=== PATIENT | female | born 1990 | race Caucasian/White ===

== ENCOUNTER 2019-07-26 12:26 | Observation (INO) | payer BC, OTHER, SELFPAY ==
[2019-07-26 13:09] VITALS: BP 117/64; PULSE 81
[2019-07-26 13:30] VITALS: BP 111/64; PULSE 73
[2019-07-26 14:14] LABS: Add Urine Microscopic? YES; Appearance Urine Cloudy (Clear); Bacteria Urine Trace /hpf; Bilirubin Urine Negative (Negative); Blood Urine Negative (Negative); Color Urine Straw (Yellow); Glucose Urine UA Negative (Negative); Ketones Urine Negative (Negative); Leukocyte Esterase Ur 1+ LEU/UL (NEGATIVE); Mucus Urine Rare /lpf; Nitrate Urine Negative (Negative); Protein Urine Negative (Negative); RBC Urine 0-2 /hpf (0-2); Specific Grav Ur 1.008 (1.001-1.035); Squamous Epithelial Cell Urine Many /hpf (Few); Urobilinogen Urine Negative mg/dL (<2.0)
[2019-07-26] MEDS: TERBUTALINE SULFATE 1 MG/ML VIAL 0.25 MG SUB-Q (14:42)
--- NOTE | 2019-07-30 14:21 | P.PNOB_ITS ---
OB - Triage/Final Diagnosis Evaluation Laboratory results: Laboratory Tests 07/26/19 13:16 Urine Color Straw Urine Appearance Cloudy H Urine pH 7.0 Ur Specific [place] 1.008 Urine Protein Negative Urine Glucose (UA) Negative Urine Ketones Negative Ur Blood (Man) Negative Urine Nitrate Negative Urine Bilirubin Negative Urine Urobilinogen Negative Ur Leukocyte Esterase 1+ H Urine RBC 0-2 Urine WBC 4-6 H Ur Squamous Epith Cells Many H Urine Bacteria Trace Urine Mucus Rare Final Diagnosis (1) False labor: Code(s): O47.9 - False labor, unspecified Status: Acute
== END 2019-07-26 16:10 | disposition home or self-care (01) ==
PROVIDERS: Admitting Provider Obstetrics & Gynecology; PCP Family Medicine; Visit Provider Obstetrics & Gynecology
DX: O47.03 False labor before 37 completed weeks of gestation, third trimester (principal); Z3A.33 33 weeks gestation of pregnancy
CPT/HCPCS: 81001; 84112; 87086; 87088; 96372; G0378; G0379; J3105

== ENCOUNTER 2019-08-08 11:22 | Observation (INO) | payer BC, OTHER, SELFPAY ==
--- NOTE | 2019-08-08 11:22 | OBADM ---
This patient, Mami Rodriguez, admitted to the OB room OB Post 116 for observation. Patient/family oriented to hospital policies and general routines including ID bracelet, bed and alarms, visiting hours, pain management, procedures, bathroom and other care routines, personal items, smoking policy, room service/diet, and visiting hours. Patient/Family are encouraged to report perceived risks to care and to ask questions if they do not understand what they are told or what they should do.
[2019-08-08 12:15] VITALS: BP 121/74; PULSE 91; BMI 41.6
[2019-08-08 12:24] LABS: Basophils Percent Auto 0.3 % (0.2-1.2); Eosinophils Percent Auto 0.3 % (0-4.4); Hematocrit 33.7 % (37.0-47.0); Hemoglobin 11.1 g/dL (12.0-15.0); Immature Granulocyte Absolute 0.04 K/mm3 (0.00-0.031); Immature Granulocyte Percent A 0.5 % (0-0.5); Lymphocytes Percent Auto 18.2 % (18.3-44.2); Mean Corpuscular HGB Conc 32.9 g/dl (32-36); Mean Corpuscular Hemoglobin 28.8 pg (26-34); Mean Corpuscular Volume 87.3 fl (80-100); Mean Platelet Volume 10.7 fl (7.4-10.4); Monocytes Absolute Auto 0.5 K/mm3 (0.1-0.6); Monocytes Percent Auto 5.9 % (2.6-8.5); Neutrophils Absolute Auto 5.8 K/mm3 (1.3-6.7); Neutrophils Percent Auto 74.8 % (45.5-73.1); Platelet Count Result 161 k/mm3 (150-375); Red Blood Count 3.86 M/mm3 (4.2-5.4); Red Cell Distribution Width 14.4 % (11.5-14.5); White Blood Count 7.7 K/mm3 (4.5-10.0)
[2019-08-08 12:30] VITALS: BP 103/67; PULSE 80
[2019-08-08 12:30] LABS: Add Urine Microscopic? YES; Appearance Urine Clear (Clear); Bacteria Urine Trace /hpf; Bilirubin Urine Negative (Negative); Blood Urine Negative (Negative); Color Urine Straw (Yellow); Glucose Urine UA Negative (Negative); Ketones Urine Negative (Negative); Leukocyte Esterase Ur 1+ LEU/UL (NEGATIVE); Mucus Urine Rare /lpf; Nitrate Urine Negative (Negative); Protein Urine Negative (Negative); RBC Urine 0-2 /hpf (0-2); Specific Grav Ur 1.009 (1.001-1.035); Squamous Epithelial Cell Urine Many /hpf (Few); Urobilinogen Urine Negative mg/dL (<2.0); WBC Urine 0-3 /hpf (0-3)
[2019-08-08 12:38] LABS: Alanine Aminotransferase 9 U/L (4-35); Albumin Level 3.4 g/dL (3.5-5.1); Alkaline Phosphatase 107 U/L (38-126); Aspartate Amino Transferase 18 U/L (14-36); Bilirubin,Total 0.2 mg/dL (0.2-1.3); Blood Urea Nitrogen 5 mg/dL (7-17); Calcium 8.9 mg/dL (8.4-10.2); Carbon Dioxide 21 mmol/L (22-30); Chloride 108 mmol/L (98-107); Estimated Glomerular Filt Rate > 60; Glucose 71 mg/dL (65-105); Sodium 134 mmol/L (137-145)
[2019-08-08] MEDS: DEXTROSE 5%/LACTATED RINGERS 1,000 ML 999 ML IV CONT (12:42)
[2019-08-08 12:45] VITALS: BP 120/71; PULSE 87
[2019-08-08 12:53] LABS: Uric Acid 3.5 mg/dL (2.5-7.5)
[2019-08-08 13:00] VITALS: BP 117/72; PULSE 87
[2019-08-08 13:15] VITALS: BP 115/69; PULSE 88
[2019-08-08 13:30] VITALS: BP 121/74; PULSE 93
--- NOTE | 2019-08-12 20:51 | P.PNOB_ITS ---
OB - Triage/Final Diagnosis Visit Information Date of evaluation: 08/08/19 Comments/Additional reasons for admission: nausea, dizziness Evaluation Laboratory results: Laboratory Tests 08/08/19 08/08/19 08/08/19 12:17 12:17 12:18 WBC RBC Hgb Hct MCV MCH MCHC RDW Plt Count MPV Immature Gran % (Auto) Neut % (Auto) Lymph % (Auto) [place] % (Auto) Eos % (Auto) Baso % (Auto) Lymph # (Auto) [place] # (Auto) Eos # (Auto) Baso # (Auto) Abs Immat Gran (auto) Absolute Neuts (auto) Absolute Nucleated RBC Nucleated RBC % Sodium 134 L Potassium 4.0 Chloride 108 H Carbon Dioxide 21 L BUN 5 L Creatinine 0.40 L Estim Creat Clear Calc Not Reportable Estimated GFR > 60 Glucose 71 Uric Acid 3.5 Calcium 8.9 Total Bilirubin 0.2 AST 18 ALT 9 Alkaline Phosphatase 107 Total Protein 7.0 Albumin 3.4 L Urine Color Straw Urine Appearance Clear Urine pH 7.0 Ur Specific [employer] [place] 1.009 Urine Protein Negative Urine Glucose (UA) Negative Urine Ketones Negative Ur Blood (Man) Negative Urine Nitrate Negative Urine Bilirubin Negative Urine Urobilinogen Negative Ur Leukocyte Esterase 1+ H Urine RBC 0-2 Urine WBC 0-3 Ur Squamous Epith Cells Many H Urine Bacteria Trace Urine Mucus Rare 08/08/19 12:18 WBC 7.7 RBC 3.86 L Hgb 11.1 L Hct 33.7 L MCV 87.3 MCH 28.8 MCHC 32.9 RDW 14.4 Plt Count 161 MPV 10.7 H Immature Gran % (Auto) 0.5 Neut % (Auto) 74.8 H Lymph % (Auto) 18.2 L [place] % (Auto) 5.9 Eos % (Auto) 0.3 Baso % (Auto) 0.3 Lymph # (Auto) 1.40 [place] # (Auto) 0.5 Eos # (Auto) 0.0 Baso # (Auto) 0.0 Abs Immat Gran (auto) 0.04 H Absolute Neuts (auto) 5.8 Absolute Nucleated RBC 0.0 Nucleated RBC % 0.0 Sodium Potassium Chloride Carbon Dioxide BUN Creatinine Estim Creat Clear Calc Estimated GFR Glucose Uric Acid Calcium Total Bilirubin AST ALT Alkaline Phosphatase Total Protein Albumin Urine Color Urine Appearance Urine pH Ur Specific [employer] Urine Protein Urine Glucose (UA) Urine Ketones Ur Blood (Man) Urine Nitrate Urine Bilirubin Urine Urobilinogen Ur Leukocyte Esterase Urine RBC Urine WBC Ur Squamous Epith Cells Urine Bacteria Urine Mucus
== END 2019-08-08 14:45 | disposition home or self-care (01) ==
PROVIDERS: Advanced Practice Midwife; Admitting Provider Obstetrics & Gynecology; PCP Family Medicine; Visit Provider Obstetrics & Gynecology
DX: O26.893 Other specified pregnancy related conditions, third trimester (principal); R42 Dizziness and giddiness; R11.0 Nausea; Z3A.35 35 weeks gestation of pregnancy
CPT/HCPCS: 36415; 80053; 81001; 84550; 85025; 87086; 87088; G0378; G0379; J7121

== ENCOUNTER 2019-08-17 19:44 | Observation (INO) | payer BC, OTHER, SELFPAY ==
[2019-08-17 23:15] VITALS: BMI 42.3
[2019-08-17] MEDS: LACTATED RINGERS 1,000 ML 125 ML IV CONT (23:19)
[2019-08-17 23:26] LABS: Basophils Percent Auto 0.2 % (0.2-1.2); Eosinophils Percent Auto 0.4 % (0-4.4); Hematocrit 34.6 % (37.0-47.0); Hemoglobin 11.5 g/dL (12.0-15.0); Immature Granulocyte Absolute 0.05 K/mm3 (0.00-0.031); Immature Granulocyte Percent A 0.5 % (0-0.5); Lymphocytes Absolute Auto 2.02 K/mm3 (0.9-3.2); Lymphocytes Percent Auto 19.9 % (18.3-44.2); Mean Corpuscular HGB Conc 33.2 g/dl (32-36); Mean Corpuscular Hemoglobin 28.7 pg (26-34); Mean Corpuscular Volume 86.3 fl (80-100); Mean Platelet Volume 10.7 fl (7.4-10.4); Monocytes Absolute Auto 0.5 K/mm3 (0.1-0.6); Monocytes Percent Auto 4.9 % (2.6-8.5); Neutrophils Absolute Auto 7.5 K/mm3 (1.3-6.7); Neutrophils Percent Auto 74.1 % (45.5-73.1); Platelet Count Result 149 k/mm3 (150-375); Red Blood Count 4.01 M/mm3 (4.2-5.4); White Blood Count 10.1 K/mm3 (4.5-10.0)
--- NOTE | 2019-08-17 23:28 | LDADM ---
This patient, Mami Rodriguez, was admitted to Labor/Delivery/Recovery 106 on 08/17/19 at 19:44. Plans for labor, pain management and were discussed with patient. Patient/family oriented to hospital policies and general routines including ID bracelet, bed and alarms, visiting hours, pain management, procedures, bathroom and other care routines, personal items, smoking policy, room service/diet and guest tray routines, infant security routines, and visiting hours. Patient/Family are encouraged to report perceived risks to care and to ask questions if they do not understand what they are told or what they should do. See OBIX for further documentation.
[2019-08-17 23:39] VITALS: BP 123/74; PULSE 81; TEMP 36.6
[2019-08-18] VITALS (10 sets, daily range): BP systolic 102–122; BP diastolic 62–73; PULSE 89–114; TEMP 36.3–37.1
[2019-08-20 13:33] LABS: Rapid Plasma Reagin Non-Reactive (NonReactive)
--- NOTE | 2019-08-31 12:12 | PM.OBTRLD ---
OB - Triage/Final Diagnosis Evaluation Laboratory results: Laboratory Tests 08/17/19 08/17/19 08/17/19 23:16 23:16 23:16 WBC 10.1 H RBC 4.01 L Hgb 11.5 L Hct 34.6 L MCV 86.3 MCH 28.7 MCHC 33.2 RDW 15.0 H Plt Count 149 L MPV 10.7 H Immature Gran % (Auto) 0.5 Neut % (Auto) 74.1 H Lymph % (Auto) 19.9 [place] % (Auto) 4.9 Eos % (Auto) 0.4 Baso % (Auto) 0.2 Lymph # (Auto) 2.02 [place] # (Auto) 0.5 Eos # (Auto) 0.0 Baso # (Auto) 0.0 Abs Immat Gran (auto) 0.05 H Absolute Neuts (auto) 7.5 H Absolute Nucleated RBC 0.0 Nucleated RBC % 0.0 RPR Non-reactive Blood Type AB Positive Antibody Screen Negative Final Diagnosis (1) False labor: Code(s): O47.9 - False labor, unspecified Status: Acute
== END 2019-08-18 09:35 | disposition home or self-care (01) ==
PROVIDERS: Advanced Practice Midwife; Admitting Provider Obstetrics & Gynecology; PCP Family Medicine; Visit Provider Obstetrics & Gynecology
DX: O47.9 False labor, unspecified (principal); Z3A.00 Weeks of gestation of pregnancy not specified
CPT/HCPCS: 36415; 85025; 86592; 86850; 86900; 86901; 96374; 96375; G0378; G0379; J3010; J3370; J7120

== ENCOUNTER 2019-08-19 19:00 | Observation (INO) | payer BC, OTHER, SELFPAY ==
--- NOTE | 2019-08-19 19:00 | OBADM ---
This patient, Mami Rodriguez, admitted to the OB room Labor/Delivery/Recovery 106 for observation. Patient/family oriented to hospital policies and general routines including ID bracelet, bed and alarms, visiting hours, pain management, procedures, bathroom and other care routines, personal items, smoking policy, room service/diet, and visiting hours. Patient/Family are encouraged to report perceived risks to care and to ask questions if they do not understand what they are told or what they should do.
[2019-08-19 19:15] VITALS: TEMP 37.3
[2019-08-19 19:17] VITALS: BP 131/79; PULSE 96
[2019-08-19 19:30] VITALS: BP 128/74; PULSE 94
[2019-08-19 19:45] VITALS: BP 121/78; PULSE 77
[2019-08-19 20:00] VITALS: BP 116/81; PULSE 90; BMI 42.3
[2019-08-19 20:15] VITALS: BP 120/66; PULSE 76
--- NOTE | 2019-08-28 07:27 | PM.OBTRLD ---
OB - Triage/Final Diagnosis Visit Information Date of evaluation: 08/22/19 Reason for evaluation: threatened labor
== END 2019-08-19 21:45 | disposition home or self-care (01) ==
PROVIDERS: Admitting Provider Obstetrics & Gynecology; PCP Family Medicine; Visit Provider Obstetrics & Gynecology
DX: O47.1 False labor at or after 37 completed weeks of gestation (principal); Z3A.37 37 weeks gestation of pregnancy
CPT/HCPCS: G0378; G0379

== ENCOUNTER 2019-08-27 13:07 | Outpatient (CLI) | payer BC, OTHER, SELFPAY ==
[2019-08-27 13:07] VITALS: BMI 42.5
--- NOTE | 2019-08-27 17:23 | OBADM ---
This patient, Mami Rodriguez, admitted to the OB room Labor/Delivery/Recovery 106 for observation. Patient/family oriented to hospital policies and general routines including ID bracelet, bed and alarms, visiting hours, pain management, procedures, bathroom and other care routines, smoking policy,call light. Patient/Family are encouraged to report perceived risks to care and to ask questions if they do not understand what they are told or what they should do.
== END 2019-08-27 17:22 | disposition home or self-care (01) ==
LOC: ANHOBOP 16:50 → ANHLDR 16:52
PROVIDERS: PCP Family Medicine; Visit Provider Obstetrics & Gynecology
DX: Z34.90 Encounter for supervision of normal pregnancy, unspecified, unspecified trimester (principal); Z3A.00 Weeks of gestation of pregnancy not specified
CPT/HCPCS: 59025; 99199

== ENCOUNTER 2019-08-28 21:55 | Inpatient (IN) | payer BC, OTHER, SELFPAY ==
[2019-08-28] VITALS (16 sets, daily range): BP systolic 105–125; BP diastolic 55–80; PULSE 78–103; TEMP 36.7; O2SAT 97–99; BMI 42.6
--- NOTE | 2019-08-28 22:30 | P.HP_ITS ---
Obstetrics - Admit Note Admission Note: record reviewed. No pertinent additions to the history and/or any subsequent changes in the physical findings that are not consistent with the expected course of the were found.Pt arrived to in active labor with complaints of contractions and leaking fluid, GBS +. Rupture not co nfirmed cervix 6-7 cm. Pt rating pain at a 9 , plan epidural, antibiotics, anticipate vaginal delivery Additions to the history and/or subsequent changes in the physical findings follow. None.
[2019-08-28 22:54] LABS: Basophils Percent Auto 0.3 % (0.2-1.2); Eosinophils Percent Auto 0.2 % (0-4.4); Hemoglobin 11.4 g/dL (12.0-15.0); Immature Granulocyte Absolute 0.04 K/mm3 (0.00-0.031); Immature Granulocyte Percent A 0.4 % (0-0.5); Lymphocytes Percent Auto 17.2 % (18.3-44.2); Mean Corpuscular HGB Conc 33.5 g/dl (32-36); Mean Corpuscular Hemoglobin 28.9 pg (26-34); Mean Corpuscular Volume 86.1 fl (80-100); Monocytes Absolute Auto 0.6 K/mm3 (0.1-0.6); Monocytes Percent Auto 5.6 % (2.6-8.5); Neutrophils Absolute Auto 7.5 K/mm3 (1.3-6.7); Neutrophils Percent Auto 76.3 % (45.5-73.1); Platelet Count Result 153 k/mm3 (150-375); Red Blood Count 3.95 M/mm3 (4.2-5.4); Red Cell Distribution Width 15.5 % (11.5-14.5); White Blood Count 9.9 K/mm3 (4.5-10.0)
[2019-08-28] MEDS: LACTATED RINGERS 1,000 ML 125 ML IV CONT (22:58)
--- NOTE | 2019-08-28 23:06 | LDADM ---
This patient, Mami Rodriguez, was admitted to Labor/Delivery/Recovery 103 on 08/28/19 at 21:55. Plans for labor, pain management and were discussed with patient. Patient/family oriented to hospital policies and general routines including ID bracelet, bed and alarms, visiting hours, pain management, procedures, bathroom and other care routines, personal items, smoking policy, room service/diet and guest tray routines, infant security routines, and visiting hours. Patient/Family are encouraged to report perceived risks to care and to ask questions if they do not understand what they are told or what they should do. See OBIX for further documentation.
--- NOTE | 2019-08-28 23:18 | P.PNAN_ITS ---
Anes - Eval Pre Procedure Procedure: labor epidural Date/Time: 08/28/19 23:18 Surgeon: jourdan Pre Op Diagnosis: Contraction Patient Data Age: 29 Gender: F Height: Weight: Last Vital Signs Pulse 78 08/28/19 23:16 BP 125/80 08/28/19 23:16 Allergies Allergy/AdvReac Type Severity Reaction Status Date / Time amoxicillin Allergy Unknown Rash Verified 08/21/19 09:11 Home Medications Medication Instructions Recorded Confirmed Type PNV cmb#95-ferrous fumarate-FA 1 tablet PO DAILY 08/10/19 08/17/19 History [] ferrous sulfate [Iron (ferrous 325 mg PO DAILY 08/10/19 08/17/19 History sulfate)] sertraline [Zoloft] 50 mg PO DAILY 08/10/19 08/17/19 History Laboratory Tests 08/28/19 08/28/19 22:48 22:48 WBC 9.9 K/mm3 K/mm3 (4.5-10.0) RBC 3.95 M/mm3 L M/mm3 (4.2-5.4) Hgb 11.4 g/dL L g/dL (12.0-15.0) Hct 34.0 % L % (37.0-47.0) MCV 86.1 fl fl (80-100) MCH 28.9 pg pg (26-34) MCHC 33.5 g/dl g/dl (32-36) RDW 15.5 % H % (11.5-14.5) Plt Count 153 k/mm3 k/mm3 (150-375) MPV 11.0 fl H fl (7.4-10.4) Immature Gran % (Auto) 0.4 % % (0-0.5) Neut % (Auto) 76.3 % H % (45.5-73.1) Lymph % (Auto) 17.2 % L % (18.3-44.2) [place] % (Auto) 5.6 % % (2.6-8.5) Eos % (Auto) 0.2 % % (0-4.4) Baso % (Auto) 0.3 % % (0.2-1.2) Lymph # (Auto) 1.70 K/mm3 K/mm3 (0.9-3.2) [place] # (Auto) 0.6 K/mm3 K/mm3 (0.1-0.6) Eos # (Auto) 0.0 K/mm3 K/mm3 (0-0.3) Baso # (Auto) 0.0 K/mm3 K/mm3 (0.0-0.1) Abs Immat Gran (auto) 0.04 K/mm3 H K/mm3 (0.00-0.031) Absolute Neuts (auto) 7.5 K/mm3 H K/mm3 (1.3-6.7) Absolute Nucleated RBC 0.0 K/mm3 K/mm3 (0.0-0.012) Nucleated RBC % 0.0 % % (0.0-0.2) RPR Pending Patient hx anesthesia problems: none Family hx anesthesia problems: none PMFSH Family History Family History (System 08/21/19 @ 09:11 by Natalia Jones) Grandparent Diabetes mellitus Mother Gestational diabetes Sibling Asthma Sibling Asthma Grandparent Hypertension Grandparent Diabetes mellitus Other Cerebrovascular accident Social History Social History (System 08/21/19 @ 09:11 by Natalia Jones) Smoking status: Never smoker Second hand tobacco smoke exposure: No Alcohol intake: never Substance use: never Gender identity (if verbalized by the patient): Female Spiritual care concerns: No Exam Day of Procedure 08/28/19 23:18
[2019-08-29] VITALS (66 sets, daily range): BP systolic 91–131; BP diastolic 36–118; PULSE 78–159; RESP 18; TEMP 36.4–37.7; O2SAT 96–100
[2019-08-29] MEDS: LACTATED RINGERS 1,000 ML 125 ML IV CONT (00:33)
[2019-08-29] MEDS: OXYTOCIN 30 UNITS/NS 500 ML 30 UNITS/500 ML BAG 999 UNITS IV CONT (02:53)
--- NOTE | 2019-08-29 03:29 | PM.OBPRVD ---
OB - Delivery Note Procedure Delivery date: 08/29/19 Delivery monitor: external FHT and external uterine Route of delivery: Laceration description: Perineal - 2nd Degree Estimated blood loss (mL): 306 Anesthesia type: Epidural Baby Date of : 08/29/19 Weeks of gestation at delivery: 38 gender: Female presentation: vertex position: Right Occiput Anterior Placenta delivery description: Spontaneous score one minute: 8 score five minutes: 9
[2019-08-29] MEDS: OXYTOCIN 30 UNITS/NS 500 ML 30 UNITS/500 ML BAG 125 UNITS IV CONT (04:06)
[2019-08-29] MEDS: IBUPROFEN 600 MG TABLET PO ×3 (05:28→17:46)
[2019-08-29] MEDS: WITCH HAZEL 40 PADS 1 PAD TOPICAL (05:28)
[2019-08-29] MEDS: BENZOCAINE 20% AER SPR (*SP) 56 GM CAN 1 SPRAY TOPICAL (05:28)
--- NOTE | 2019-08-29 05:45 | OBPPTRN ---
Patient transferred to post room #278 via wheelchair with baby in bassinet. Support person present. Oriented to unit, room, information board, rooming in, admission packet and security measures. Patient verbalizes understanding.
[2019-08-29 07:12] LABS: Rapid Plasma Reagin Non-Reactive (NonReactive)
[2019-08-29] MEDS: DOCUSATE SODIUM 100 MG CAPSULE PO (07:26)
[2019-08-29] MEDS: MULTIVIT/MIN/PREN/FOL AC/IRON TABLET 1 TAB PO (07:26)
[2019-08-29] MEDS: LANOLIN (LANSINOH) 7.5 GM CREAM 1 APPLIC TOPICAL (07:27)
--- NOTE | 2019-08-29 12:10 | PC.NURSE ---
Mother called out for assist with feeding. Mother reports infant has been sleepy for feedings. Reviewed feeding cues, frequencies, duration of feedings, feeding elimination flow sheet, and signs of adequate intake. Demonstrated stimulation techniques to wake infant for feeding. Assisted with infant to breast. Reviewed positioning/alignment in cross cradle, holding breast in U hold and guided asymmetrical latch on. Discussed rational for each. Several attempts before was able to latch correctly. Infant nursed eagerly, with steady draws and occasional swallowing noted. Reviewed signs of a correct latch, effective nursing and suck swallow ratio. Mother continued to have slight tenderness. Demonstrated how to adjust latch more deeply while feeding. was able to maintain latch without discomfort to mother. Nipple care reviewed. Suggested to continue to stimulate during feeding to keep infant awake and nursing effectively for increased intake and assist in maintaining deep latch. Instructed mother to call out for RN assistance if she is unable to latch infant for feeding or she has discomfort with nursing. Instructed feeding should be initiated three hours from start of last feeding or if feeding cues are noted before. Mother voiced understanding of information shared.
[2019-08-29] MEDS: ACETAMINOPHEN 325 MG TABLET 650 MG PO (20:02)
[2019-08-30] MEDS: IBUPROFEN 600 MG TABLET PO ×3 (00:33→13:36)
[2019-08-30 05:44] LABS: Hematocrit 26.6 % (37.0-47.0); Hemoglobin 8.6 g/dL (12.0-15.0)
--- NOTE | 2019-08-30 07:19 | WPDANLDPN2 ---
Anes-Prog Note L&D Date/Time: 08/30/19 07:19 Comfortable throughout: labor and delivery Neuraxial method: epidural Epidural/Spinal procedure site: clean & non-tender Neuro status: Neuro function grossly intact. Cardiovascular status: normal Respiratory status: normal Airway patency: baseline Mental status: baseline Post-Op hydration status: normal Vital Signs: Last Vital Signs Temp 36.4 C 08/29/19 20:00 Pulse 93 08/29/19 20:00 Resp 18 08/29/19 20:00 BP 98/58 L 08/29/19 20:00 Pulse Ox 97 08/29/19 20:00 I/O: Intake & Output 08/29/19 08/29/19 08/30/19 15:59 23:59 07:59 Intake Total 500 Balance 500 Post-procedural complaints: none Patient feedback: Patient satisfied with anesthetic care.
[2019-08-30 07:20] VITALS: BP 104/59; PULSE 79; RESP 18; TEMP 36.4; O2SAT 96
[2019-08-30] MEDS: DOCUSATE SODIUM 100 MG CAPSULE PO (07:23)
[2019-08-30] MEDS: POLYSACCHARIDE IRON COMPLEX 150 MG CAPSULE PO (07:23)
[2019-08-30] MEDS: MULTIVIT/MIN/PREN/FOL AC/IRON TABLET 1 TAB PO (07:23)
--- NOTE | 2019-08-30 07:57 | P.PNOB_ITS ---
OB - PN: Subj Subjective Date/time seen: 08/30/19 07:57 OB - PN: Obj Data Labs CBC & Chem 7: 08/30/19 04:16 Labs: Laboratory Results - last 24 hr 08/30/19 04:16 Hgb 8.6 L Hct 26.6 L OB - PN A/P Plan day: 1 Plan: routine care Comments: Considering discharge to home. Awaiting garden equipment mechanic recommendation. Time Spent With Patient Time: Total time spent is greater than 50% in coordination of care (as documented) at patient's floor/unit and/or counseling patient: Review of Systems Review of Systems: All systems reviewed & are unremarkable except as noted in HPI and below Exam Narrative: Exam Narrative: Fundus firm and vaginal flow controlled. Const: General: comfortable Chest: Breast/axilla inspection: normal inspection of the breasts Resp: Effort & Inspection: normal respiratory effort Cardio: Rate: regular rate Psych: Appearance: grossly normal Affect: normal affect Attitude: cooperative Judgement: Good judgement present (Psych)
--- NOTE | 2019-08-30 09:00 | PC.NURSE ---
Patient viewed the discharge video Mother & Baby Care, The First Two Weeks . Patient was given the opportunity and encouraged to ask questions. Patient verbalized understanding of information shared and has been given the mother/baby guide for home reference.
[2019-08-31 10:24] VITALS: BP 110/65; PULSE 81; RESP 18; TEMP 36.9
--- NOTE | 2019-09-15 21:37 | PM.OBDSVD ---
DS: Admitting Diagnosis Admitting Diagnosis Admitting Diagnosis: Encounter for supervision of normal , unspecified, third trimester OB - DS: Summary OB Procedures : None OB Procedures Intrapartum: Spontaneous Vag Delivery OB Procedures: : None Time Spent with Patient Time attestation: Total time spent providing and/or coordinating discharge services: Discharge Plan Discharge Attending physician on discharge: Teresa Smalls Consulting providers: Niyah Smith ; Lorena Larson Discharging Clinician: Lorena Larson Patient Disposition: Home, Self-Care Activity: pelvic rest Diet: regular Discharge Instructions: Education: Mom and Baby Guide and Preeclampsia Handout Given to: Mother Follow-Up: Call your delivering provider's office for an appointment to be seen in: 6 Weeks Mom and baby should come to the [facility] for the follow-up appointment. Appointment Date/Time: August 31, 2019 at 10:00 am What to expect at your follow-up visit: Physical Assessment Call [phone] if you are unable to keep your appointment time. BREAST CARE: 1. Wear a snug supportive bra. 2. For engorgement discomfort: Breast Feeding: A. Apply warm moist washcloths B. Express milk as needed to relieve engorgement C. Wear loose clothing 3. For sore nipples: A. Identify correct latch-on B. Apply warm moist washcloths before and after nursing C. Air dry nipples after nursing D. May apply Lansinoh cream to nipples EPISIOTOMY/PERINEAL CARE: 1. Until bleeding stops, use your shaila bottle after urinating 2. Change your pad frequently throughout the day 3. You may take sitz baths several times a day (fill your bathtub with warm water and soak for 20 minutes.) Do NOT bathe in the water 4. No tub baths until seen by your physician - You may shower ACTIVITY: 1. Rest as much as possible. 2. Do not exercise or lift anything heavier than your baby (such as laundry or other children.) 3. Avoid stairs or driving as much as possible. 4. Do not put anything into the vagina. No douching, tampons, or sexual activity until seen by physician. NOTIFY PHYSICIAN IF YOU HAVE ANY QUESTIONS OR IF ANY OF THE FOLLOWING SYMPTOMS OCCUR: 1. If your episiotomy becomes red, swollen, or more painful than what you have experienced in the hospital. 2. If your vaginal bleeding becomes foul smelling. 3. If your vaginal bleeding becomes more heavy than a period or if your bleeding changes from pink to bright red. However, you may pass an occasional walnut-sized clot once or twice for the first week . 4. If you experience a sharp, shooting pain in you calves. 5. If you discover a hard, reddened area on your breast or if you experience flu-like symptoms. DIET: 1. Eat regular, well-balanced meals. 2. Drink plenty of fluids daily. If , drink to thirst. Stand Alone Forms: General Discharge Information Follow-up/Referrals: Teresa Smalls MD [Physician] - 4 Weeks Discharge Medications: Continued ferrous sulfate [Iron (ferrous sulfate)] 325 mg (65 mg iron) Tablet 325 mg PO DAILY RF: 0 sertraline [Zoloft] 50 mg Tablet 50 mg PO DAILY RF: 0 PNV cmb#95-ferrous fumarate-FA [] 28 mg iron- 800 mcg Tablet 1 tablet PO DAILY RF: 0 Date of admission: 08/28/19 21:55 Primary Care Provider: Brittany Contreras Admitting Provider: Teresa Smalls Discharge Date/Time: 08/30/19 16:47 Attending physician on admission: Teresa Smalls
== END 2019-08-30 16:47 | disposition home or self-care (01) | DRG 807 ==
LOC: ANHLDR 22:45 → ANHOB2 08-29 06:15
PROVIDERS: Advanced Practice Midwife; Admitting Provider Obstetrics & Gynecology; PCP Family Medicine; Visit Provider Obstetrics & Gynecology
DX: O99.824 Streptococcus B carrier state complicating childbirth (principal); Z37.0 Single live birth; O70.1 Second degree perineal laceration during delivery; O76 Abnormality in fetal heart rate and rhythm complicating labor and delivery; Z3A.38 38 weeks gestation of pregnancy
CPT/HCPCS: 36415; 85014; 85018; 85025; 86592; 86850; 86900; 86901; A9270; J1200; J2590; J2795; J3370; J7120

== ENCOUNTER 2021-11-17 17:07 | Observation (INO) | payer OTHER, SELFPAY ==
[2021-11-17 17:32] VITALS: TEMP 36.4
[2021-11-17 17:33] VITALS: BP 115/65; PULSE 68
[2021-11-17 17:43] VITALS: BMI 39.5
[2021-11-17 17:45] VITALS: BP 108/62; PULSE 61
[2021-11-17 18:00] VITALS: BP 104/63; PULSE 65
[2021-11-17 18:15] VITALS: BP 101/65; PULSE 70
[2021-11-17 19:15] LABS: Appearance Urine Clear (Clear); Bilirubin Urine Negative (Negative); Blood Urine Negative (Negative); Color Urine Light Yellow (Yellow); Glucose Urine UA Negative (Negative); Ketones Urine Negative (Negative); Leukocyte Esterase Ur Trace LEU/UL (NEGATIVE); Nitrate Urine Negative (Negative); Protein Urine Negative (Negative); Urobilinogen Urine 0.2 mg/dL (<2.0); pH Urine 6.5 (5.0-9.0)
[2021-11-17 19:26] LABS: Bacteria Urine Trace /hpf; RBC Urine 0-2 /hpf (0-2); Squamous Epithelial Cell Urine Rare /hpf (Few); WBC Urine 0-3 /hpf (0-3)
[2021-11-17 19:30] LABS: Add Urine Microscopic? YES
--- NOTE | 2021-12-06 20:05 | P.PNOB_ITS ---
OB - Triage/Final Diagnosis Visit Information Comments/Additional reasons for admission: I have assessed the risk for this patient, Mami Rordiguez, and determined that she would benefit from observation care. Evaluation Laboratory results: Laboratory Tests 11/17/21 18:31 Urine Color Light yellow Urine Appearance Clear Urine pH 6.5 Ur Specific [place] 1.010 Urine Protein Negative Urine Glucose (UA) Negative Urine Ketones Negative Ur Blood (Man) Negative Urine Nitrate Negative Urine Bilirubin Negative Urine Urobilinogen 0.2 Ur Leukocyte Esterase Trace H Urine RBC 0-2 Urine WBC 0-3 Ur Squamous Epith Cells Rare Urine Bacteria Trace Final Diagnosis (1) Back pain affecting : Code(s): O99.891 - Other specified diseases and conditions complicating ; M54.9 - Dorsalgia, unspecified Status: Acute
== END 2021-11-17 20:20 | disposition home or self-care (01) ==
PROVIDERS: Admitting Provider Obstetrics & Gynecology; PCP Family Medicine; Visit Provider Obstetrics & Gynecology
DX: O26.893 Other specified pregnancy related conditions, third trimester (principal); M54.9 Dorsalgia, unspecified; R10.9 Unspecified abdominal pain; O26.853 Spotting complicating pregnancy, third trimester; Z3A.30 30 weeks gestation of pregnancy
CPT/HCPCS: 81001; 87086; G0378; G0379

== ENCOUNTER 2022-01-03 09:50 | Observation (INO) | payer OTHER, SELFPAY ==
--- NOTE | 2022-01-31 21:45 | PM.OBTRLD ---
OB - Triage/Final Diagnosis Visit Information Comments/Additional reasons for admission: I have assessed the risk for this patient, Mami Rodriguez, and determined that she would benefit from observation care. Final Diagnosis (1) False labor: Code(s): O47.9 - False labor, unspecified Status: Acute
== END 2022-01-03 11:35 | disposition home or self-care (01) ==
PROVIDERS: Admitting Provider Obstetrics & Gynecology; PCP Family Medicine; Visit Provider Obstetrics & Gynecology
DX: O47.1 False labor at or after 37 completed weeks of gestation (principal); Z3A.37 37 weeks gestation of pregnancy
CPT/HCPCS: G0378; G0379

== ENCOUNTER 2022-01-15 00:03 | Inpatient (IN) | payer OTHER, SELFPAY ==
[2022-01-15] VITALS (92 sets, daily range): BP systolic 55–124; BP diastolic 21–82; PULSE 55–131; RESP 18; TEMP 36.3–37.2; O2SAT 94–100; BMI 42.3
--- OUTSIDE RECORDS SUMMARY | 2022-01-15 00:09 | XMS_ITS | Encounter Summary ---
:1990 Author Care Team Providers Name Role Phone Brittany Contreras MD Primary Care Provider [phone] Reason for Visit None recorded. Assessment and Plan 1. Maternal obesity complicating pregna ncy, childbirth and the puerperium, antepartum ? non-stress test Discussion Note: None recorded.Patient educational handouts: No information available. Plan of Care Reminders Provider Appointments None recorded. ? ? Lab None recorded. ? ? Referral None recorded. ? ? Procedures None recorded. ? ? Surgeries None recorded. ? ? Imaging Non-stress Test 01/13/2022 [place] Medications Name Start Date ? ? ? sertraline 50 mg tablet ? TAKE 1 TABLET BY MOUTH EVERY DAY Medications Administered None recorded. Vitals None recorded. Results Lab Results None recorded. Allergies Code Code System Name Reaction Severity Onset 723 RxNorm Amoxicillin Hives Mild to Moderate ? Problems Name Status Onset Date Source ? Asthma Active 03/07/2020 ? Active 07/09/2021 ? Maternal Obesity Complicating , Childbirth and the Acti ve 09/01/2021 ? 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 Procedures Date Name Performed by ? 12/16/2021 Non-stress Test [place] [address] [place] [address] ([address]) 12/16/2021 US, Obstetric, Biophysical Profile + Mar
--- OUTSIDE RECORDS SUMMARY | 2022-01-15 00:09 | XMS_ITS | Encounter Summary ---
:1990 Author Care Team Providers Name Role Phone Brittany Contreras MD Primary Care Provider [phone] Reason for Visit OB visit Assessment and Plan 1. Maternal obesity complicating pregna ncy, childbirth and the puerperium, antepartum 2. Routine care Discussion Note: None recorded.Patient educational handouts: No information available. Plan of Care Reminders Provider Appointments None recorded. ? ? Lab None recorded. ? ? Referral None recorded. ? ? Procedures None recorded. ? ? Surgeries None recorded. ? ? Imaging None recorded. ? ? Medications Name Start Date ? ? ? sertraline 50 mg tablet ? TAKE 1 TABLET BY MOUTH EVERY DAY Medications Administered None recorded. Vitals Height Weight BMI Blood Pressure 5 ft 8 in 285 lbs 43.3 kg/m2 116/75 mm[Hg] Results Lab Results None recorded. Allergies Code [...] Name Performed by ? 12/16/2021 Non-stress Test [place] [address] [place] [address]
--- OUTSIDE RECORDS SUMMARY | 2022-01-15 00:09 | XMS_ITS | Encounter Summary ---
:1990 Author Care Team Providers Name Role Phone Brittany Contreras MD Primary Care Provider [phone] Reason for Visit None recorded. Assessment and Plan 1. Maternal obesity complicating pregna ncy, childbirth and the puerperium, antepartum ? US, obstetric, biophysical profile + non-stress test Discussion Note: None recorded.Patient educational handouts: No information available. Plan of Care Reminders Provider Appointments None recorded. ? ? Lab None recorded. ? ? Referral None recorded. ? ? Procedures None recorded. ? ? Surgeries None recorded. ? ? Imaging US, Obstetric, Biophysical Profile + [place] Non-stress Test Medications Name Start Date ? ? ? [...] Name Performed by ? 12/16/2021 Non-stress Test [place] [address] [place] [address]
--- OUTSIDE RECORDS SUMMARY | 2022-01-15 00:09 | XMS_ITS | Encounter Summary ---
:1990 Author Care Team Providers Name Role Phone Brittany Contreras MD Primary Care Provider [phone] Reason for Visit OB visit Assessment and Plan 1. Maternal obesity complicating pregna ncy, childbirth and the puerperium, antepartum 2. Group B Streptococcus carrier 3. Large for gestation age fetus Discussion Note: None recorded.Patient educational handouts: No [...] BMI Blood Pressure 5 ft 8 in 282 lbs 42.9 kg/m2 126/75 mm[Hg] Results Lab Results None recorded. Allergies Code Code System Name Reaction Severity Onset 723 RxNorm Amoxicillin Hives Mild to Moderate ? Problems Name Status Onset Date Source ? Asthma Active 03/07/2020 ? Active 07/09/2021 ? Maternal Obesity Complicating , Childbirth and the Acti ve 09/01/2021 ? 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 Procedures Date Name Performed by ? 12/09/2021 Non-stress Test [facility] [address]
--- OUTSIDE RECORDS SUMMARY | 2022-01-15 00:09 | XMS_ITS ---
:1990 Author Care Team Providers Name Role Phone MIKIE JON MD Primary Care Provider [phone] Allergies Code Code System Name Reaction Severity Status Onset 723 RxNorm Amoxicillin Hives Mild to Moderate Active ? Medications Name Status Start Date Stop Date ? ? Augmentin 875 mg-125 mg tablet Completed 07/29/2017 0 08/30/2017 take 1 tablet by oral route every 12 hours Celexa 20 mg tablet Completed 05/08/2018 01/22/2019 take 1 tablet by oral route every day COVID-19 test specimen collection Completed ? 04/28/2021 TEST DIRECTED ID NOW COVID-19 Test Kit Completed ? 022 TEST DIRECTED TODAY Lexapro 10 mg tablet Completed 07/31/2018 01/22/2019 TAKE 1 TABLET BY ORAL ROUTE EVERY DAY meclizine 12.5 mg tablet Completed 03/24/2017 021 take 2 tablet by oral route 3 times every day as needed metformin 500 mg tablet Completed 03/24/2017 11/15/19 18 take 1 tablet by oral route 2 times every day with morning and evening meals metformin 500 mg/5 mL oral solution Completed ? 03/07/2020 take 10 milliliter by oral route 2 times every day with meals metformin ER 500 mg tablet,extended release 24 hr Completed ? 07/09/2021 TAKE 1 TABLET BY MOUTH EVERY EVENING WITH FOOD Active ? Not available 28 mg iron-800 mcg tablet Completed ? 03/07/2020 sertraline 50 mg tablet Active ? Not avai lable Slow Release Iron Completed ? 03/07/2020 Problems Name Status Onset Date Source ? SNOMED CT Concept Unknown 03/24/2017 History Finding of Contents of Cervix Unknown 03/29/2017 Hi story Uterine Size for Dates Discrepancy Unknown 03/29/2017 H
--- OUTSIDE RECORDS SUMMARY | 2022-01-15 00:10 | XMS_ITS | Encounter Summary ---
:1990 Author Care Team Providers Name Role Phone Brittany Contreras MD Primary Care Provider [phone] Reason for Visit None recorded. Assessment and [...] None recorded. ? ? Imaging Non-stress Test 01/06/2022 [facility] Medications Name Start Date ? ? ? [...] Name Performed by ? 12/09/2021 Non-stress Test [place] [address] [place] [address] ([address]) 12/09/2021 US, Obstetric, Biophysical Profile + [place]
--- OUTSIDE RECORDS SUMMARY | 2022-01-15 00:10 | XMS_ITS | Encounter Summary ---
:1990 Author Care Team Providers Name Role Phone Brittany Contreras MD Primary Care Provider [phone] Reason for Visit None recorded. Assessment and [...] ? Imaging US, Obstetric, Biophysical Profile + [place] Non-stress Test Medications Name Start Date ? [...] ? Procedures Date Name Performed by ? 11/30/2021 US, Obstetric, Follow-up [facility] [place] [address] [place] [address]
--- OUTSIDE RECORDS SUMMARY | 2022-01-15 00:10 | XMS_ITS | Encounter Summary ---
:1990 Author Care Team Providers Name Role Phone Brittany Contreras MD Primary Care Provider [phone] Reason for Visit OB visit Assessment and [...] BMI Blood Pressure 5 ft 8 in 278 lbs 42.3 kg/m2 115/70 mm[Hg] Results Lab Results None recorded. Allergies [...] Performed by ? 11/30/2021 US, Obstetric, Follow-up [facility] [address] [place] [address]
--- OUTSIDE RECORDS SUMMARY | 2022-01-15 00:10 | XMS_ITS | Encounter Summary ---
:1990 Author Care Team Providers Name Role Phone Brittany Contreras MD Primary Care Provider [phone] Reason for Visit None recorded. Assessment and Plan 1. Maternal obesity complicating pregna ncy, childbirth and the puerperium, antepartum ? US, obstetric, biophysical profile Discussion Note: None recorded.Patient educational handouts: No information available. Plan of Care Reminders Provider Appointments None recorded. ? ? Lab None recorded. ? ? Referral None recorded. ? ? Procedures None recorded. ? ? Surgeries None recorded. ? ? Imaging US, Obstetric, Biophysical Profile 12/16/2021 [facility] Medications Name Start Date ? ? ? [...] Performed by ? 11/30/2021 US, Obstetric, Follow-up [facility] [address] [place] [address] (Work [address]) 12/09/2021
--- OUTSIDE RECORDS SUMMARY | 2022-01-15 00:10 | XMS_ITS | Encounter Summary ---
:1990 Author Care Team Providers Name Role Phone Brittany Contreras MD Primary Care Provider [phone] Reason for Visit None recorded. Assessment and [...] ? Imaging US, Obstetric, Biophysical Profile + [facility] Non-stress Test Medications Name Start Date ? [...] Performed by ? 11/30/2021 US, Obstetric, Follow-up [facility] [address] [place] [address]
--- OUTSIDE RECORDS SUMMARY | 2022-01-15 00:10 | XMS_ITS | Encounter Summary ---
:1990 Author Care Team Providers Name Role Phone Brittany Contreras MD Primary Care Provider [phone] Reason for Visit OB visit Assessment and Plan 1. Routine care 2. Maternal obesity complicating pregna ncy, childbirth and the puerperium, antepartum Discussion Note: None recorded.Patient educational handouts: No [...] BMI Blood Pressure 5 ft 8 in 280 lbs 42.6 kg/m2 101/67 mm[Hg] Results Lab Results None recorded. Allergies [...] Performed by ? 11/30/2021 US, Obstetric, Follow-up [facility] [address] [place] [address]
--- OUTSIDE RECORDS SUMMARY | 2022-01-15 00:10 | XMS_ITS | Encounter Summary ---
:1990 Author Care Team Providers Name Role Phone Brittany Contreras MD Primary Care Provider [phone] Reason for Visit None recorded. Assessment and [...] None recorded. ? ? Imaging Non-stress Test 12/09/2021 [facility] Medications Name Start Date ? ? ? [...] Performed by ? 11/30/2021 US, Obstetric, Follow-up [facility] [address] [place] [address] ([address]) 12/09/2021 Non-stress Test [facility]
--- OUTSIDE RECORDS SUMMARY | 2022-01-15 00:10 | XMS_ITS | Encounter Summary ---
:1990 Author Care Team Providers Name Role Phone Brittany Contreras MD Primary Care Provider [phone] Reason for Visit None recorded. Assessment and Plan 1. Uterine size for dates discrepancy ? US, obstetric, follow-up Discussion Note: None recorded.Patient educational handouts: No information available. Plan of Care Reminders Provider Appointments None recorded. ? ? Lab None recorded. ? ? Referral None recorded. ? ? Procedures None recorded. ? ? Surgeries None recorded. ? ? Imaging US, Obstetric, Follow-up 11/30/2021 [facility] Medications Name Start Date ? ? ? [...] Performed by ? 11/30/2021 US, Obstetric, Follow-up [facility] [address] [place] [address] ([address]) Vaccine List None recorded. Social History Tobacco Smoking Status Never Smoker
--- OUTSIDE RECORDS SUMMARY | 2022-01-15 00:10 | XMS_ITS | Encounter Summary ---
:1990 Author Care Team Providers Name Role Phone Brittany Contreras MD Primary Care Provider [phone] Reason for Visit None recorded. Assessment and [...] None recorded. ? ? Imaging Non-stress Test 12/16/2021 [facility] Medications Name Start Date ? ? ? [...] Performed by ? 11/30/2021 US, Obstetric, Follow-up [facility] [address] [place] [address] ([address]) 12/09/2021 Non-stress Test [facility]
--- OUTSIDE RECORDS SUMMARY | 2022-01-15 00:10 | XMS_ITS | Encounter Summary ---
:1990 Author Care Team Providers Name Role Phone Brittany Contreras MD Primary Care Provider [phone] Reason for Visit None recorded. Assessment and [...] ? Imaging US, Obstetric, Biophysical Profile + [place] Non-stress Test Medications Name Start Date ? [...] Performed by ? 11/30/2021 US, Obstetric, Follow-up [facility] [address] [place] [address]
--- OUTSIDE RECORDS SUMMARY | 2022-01-15 00:10 | XMS_ITS | Encounter Summary ---
:1990 Author Care Team Providers Name Role Phone Brittany Contreras MD Primary Care Provider [phone] Reason for Visit None recorded. Assessment and [...] None recorded. ? ? Imaging Non-stress Test 12/23/2021 [facility] Medications Name Start Date ? ? ? [...] Performed by ? 11/30/2021 US, Obstetric, Follow-up [facility] [address] [place] [address] ([address]) 12/09/2021 Non-stress Test [facility]
--- OUTSIDE RECORDS SUMMARY | 2022-01-15 00:10 | XMS_ITS | Encounter Summary ---
:1990 Author Care Team Providers Name Role Phone Brittnay Contreras MD Primary Care Provider [phone] Reason for Visit None recorded. Assessment and [...] ? Imaging US, Obstetric, Biophysical Profile + [facility] Non-stress Test Medications Name Start Date ? [...] Performed by ? 11/30/2021 US, Obstetric, Follow-up [facility] [address] [place] [address]
--- OUTSIDE RECORDS SUMMARY | 2022-01-15 00:10 | XMS_ITS | Encounter Summary ---
:1990 Author Care Team Providers Name Role Phone Brittany Contreras MD Primary Care Provider [phone] Reason for Visit OB visit Assessment and [...] BMI Blood Pressure 5 ft 8 in 283 lbs 43 kg/m2 116/73 mm[Hg] Results Lab Results None recorded. Allergies [...] Performed by ? 11/30/2021 US, Obstetric, Follow-up [facility] [address] [place] [address]
--- OUTSIDE RECORDS SUMMARY | 2022-01-15 00:10 | XMS_ITS | Encounter Summary ---
:1990 Author Care Team Providers Name Role Phone Brittany Contreras MD Primary Care Provider [phone] Reason for Visit OB visit OB [id number] EDC 01/20/2022 LMP 04/08/2021 Assessment and Plan 1. Routine care Discussion Note: None recorded.Patient educational [...] BMI Blood Pressure 5 ft 8 in 273 lbs 41.5 kg/m2 114/75 mm[Hg] Results Lab Results None recorded. Allergies Code Code System Name Reaction Severity Onset 723 RxNorm Amoxicillin Hives Mild to Moderate ? Problems Name Status Onset Date Source ? Asthma Active 03/07/2020 ? Active 07/09/2021 ? Maternal Obesity Complicating , Childbirth and the Acti ve 09/01/2021 ? 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 Procedures Date Name Performed by ? 10/29/2021 US, Obstetric, Follow-up [facility] [address] [place] [address] ([address]) Vac
--- OUTSIDE RECORDS SUMMARY | 2022-01-15 00:10 | XMS_ITS | Encounter Summary ---
:1990 Author Care Team Providers Name Role Phone Brittany Contreras MD Primary Care Provider [phone] Reason for Visit OB visit OB [id number] EDC 01/20/2022 LMP 04/08/2021 Assessment and Plan [...] BMI Blood Pressure 5 ft 8 in 279 lbs 42.4 kg/m2 114/75 mm[Hg] Results Lab Results None [...] Performed by ? 10/29/2021 US, Obstetric, Follow-up [facility] [address] [place] [address] ([address]) Vacci
--- OUTSIDE RECORDS SUMMARY | 2022-01-15 00:10 | XMS_ITS | Encounter Summary ---
:1990 Author Care Team Providers Name Role Phone Brittany Contreras MD Primary Care Provider [phone] Reason for Visit None recorded. Assessment and Plan 1. Maternal obesity complicating pregna ncy, childbirth and the puerperium, antepartum ? US, obstetric, follow-up Discussion Note: None recorded.Patient educational handouts: No information available. Plan of Care Reminders Provider Appointments None recorded. ? ? Lab None recorded. ? ? Referral None recorded. ? ? Procedures None recorded. ? ? Surgeries None recorded. ? ? Imaging US, Obstetric, Follow-up 01/06/2022 [facility] Medications Name Start Date ? [...] Name Performed by ? 12/09/2021 Non-stress Test [facility] [address] [place] [address] ([address]) 12/09/2021 US, Obstetric, Biop
--- OUTSIDE RECORDS SUMMARY | 2022-01-15 00:10 | XMS_ITS | Encounter Summary ---
:1990 Author Care Team Providers Name Role Phone Brittany Contreras MD Primary Care Provider [phone] Reason for Visit OB visit Assessment and Plan 1. Group B Streptococcus carrier 2. Maternal obesity complicating pregna ncy, childbirth [...] ft 8 in 279 lbs 42.4 kg/m2 108/69 mm[Hg] Results Lab Results None recorded. Allergies [...] Performed by ? 11/30/2021 US, Obstetric, Follow-up [facility] [address] [place] [address]
--- OUTSIDE RECORDS SUMMARY | 2022-01-15 00:10 | XMS_ITS | Encounter Summary ---
:1990 Author Care Team Providers Name Role Phone Brittany Contreras MD Primary Care Provider [phone] Reason for Visit None recorded. Assessment and [...] None recorded. ? ? Imaging Non-stress Test 12/30/2021 [facility] Medications Name Start Date ? ? ? [...] Performed by ? 11/30/2021 US, Obstetric, Follow-up [facility] [address] [place] [address] ([address]) 12/09/2021 Non-stress Test [facility]
--- OUTSIDE RECORDS SUMMARY | 2022-01-15 00:11 | XMS_ITS | Encounter Summary ---
:1990 Author Care Team Providers Name Role Phone Brittany Contreras MD Primary Care Provider [phone] Reason for Visit None recorded. Assessment and [...] recorded. ? ? Imaging US, Obstetric, Follow-up 10/29/2021 [facility] Medications Name Start Date ? [...] Performed by ? 10/29/2021 US, Obstetric, Follow-up [facility] [address] [place] [address] ([address]) Vaccine List None recorded. Social Hi
--- OUTSIDE RECORDS SUMMARY | 2022-01-15 00:11 | XMS_ITS | Encounter Summary ---
:1990 Author Care Team Providers Name Role Phone Brittany Contreras MD Primary Care Provider [phone] Reason for Visit OB visit Assessment and Plan 1. Routine care Discussion [...] BMI Blood Pressure 5 ft 8 in 269 lbs 40.9 kg/m2 112/74 mm[Hg] Results Lab Results None recorded. Allergies Code Code System Name Reaction Severity Onset 723 RxNorm Amoxicillin Hives Mild to Moderate ? Problems Name Status Onset Date Source ? Asthma Active 03/07/2020 ? Active 07/09/2021 ? Maternal Obesity Complicating , Childbirth and the Acti ve 09/01/2021 ? 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 Procedures Date Name Performed by ? 10/29/2021 , Obstetric, Follow-up [place] [address] [place] [address] ([address]) Vaccine List None recorded. Social History Tob
--- NOTE | 2022-01-15 00:45 | LDADM ---
This patient, Mami Rodriguez, was admitted to Labor/Delivery/Recovery 107 on 01/15/22 at 00:03. Plans for labor, pain management and were discussed with patient. Patient/family oriented to hospital policies and general routines including ID bracelet, bed and alarms, visiting hours, pain management, procedures, bathroom and other care routines, personal items, smoking policy, room service/diet and guest tray routines, infant security routines, and visiting hours. Patient/Family are encouraged to report perceived risks to care and to ask questions if they do not understand what they are told or what they should do. See [facility]BI[facility] for further documentation.
[2022-01-15] MEDS: ceFAZolin 2 GM/D5W 50 ML 2 GM/50 ML BAG IVPB (01:17)
[2022-01-15] MEDS: LACTATED RINGERS 1,000 ML 125 ML IV CONT ×2 (01:18→07:53)
[2022-01-15 01:30] LABS: Basophils Percent Auto 0.2 % (0.2-1.2); Eosinophils Percent Auto 0.4 % (0-4.4); Hematocrit 32.5 % (37.0-47.0); Immature Granulocyte Absolute 0.03 K/mm3 (0.00-0.031); Immature Granulocyte Percent A 0.3 % (0-0.5); Lymphocytes Absolute Auto 2.33 K/mm3 (0.9-3.2); Lymphocytes Percent Auto 24.8 % (18.3-44.2); Mean Corpuscular HGB Conc 33.8 g/dl (32-36); Mean Corpuscular Hemoglobin 28.7 pg (26-34); Mean Corpuscular Volume 84.9 fl (80-100); Monocytes Absolute Auto 0.6 K/mm3 (0.1-0.6); Monocytes Percent Auto 6.6 % (2.6-8.5); Neutrophils Absolute Auto 6.4 K/mm3 (1.3-6.7); Neutrophils Percent Auto 67.7 % (45.5-73.1); Platelet Count Result 162 k/mm3 (150-375); Red Blood Count 3.83 M/mm3 (4.2-5.4); Red Cell Distribution Width 13.6 % (11.5-14.5); White Blood Count 9.4 K/mm3 (4.5-10.0)
[2022-01-15] MEDS: OXYTOCIN 30 UNITS/NS 500 ML 30 UNITS/500 ML BAG IV CONT (01:30)
--- NOTE | 2022-01-15 06:35 | WPDANESEPP ---
Anes - Eval Pre Procedure Procedure: labor epidural Date/Time: 01/15/22 06:35 Pre Op Diagnosis: INDUCTION of LABOR Patient Data Age: 32 Gender: F Height: 1.75 m Weight: 130 kg Last Vital Signs Temp 36.3 C L 01/15/22 05:30 Pulse 68 01/15/22 06:30 Resp 18 01/15/22 01:20 BP 97/59 L 01/15/22 06:30 O2 Del Method Room Air 01/15/22 00:44 Allergies Allergy/AdvReac Type Severity Reaction Status Date / Time amoxicillin Allergy Unknown Rash Verified 01/29/21 14:07 vancomycin AdvReac Mild Rash Verified 01/29/21 14:07 Home Medications Medication Instructions Recorded Confirmed Type sertraline 50 mg tablet (Zoloft) 50 mg PO DAILY 08/10/19 01/15/22 History prenat.vits,hilario,chu-powk-lbvkz 1 tablet PO HS 12/21/21 12/21/21 History Laboratory Tests 01/15/22 01/15/22 01/15/22 01:13 01:13 01:13 WBC 9.4 K/mm3 K/mm3 (4.5-10.0) RBC 3.83 M/mm3 L M/mm3 (4.2-5.4) Hgb 11.0 g/dL L g/dL (12.0-15.0) Hct 32.5 % L % (37.0-47.0) MCV 84.9 fl fl (80-100) MCH 28.7 pg pg (26-34) MCHC 33.8 g/dl g/dl (32-36) RDW 13.6 % % (11.5-14.5) Plt Count 162 k/mm3 k/mm3 (150-375) MPV 11.0 fl H fl (7.4-10.4) Immature Gran % (Auto) 0.3 % % (0-0.5) Neut % (Auto) 67.7 % % (45.5-73.1) Lymph % (Auto) 24.8 % % (18.3-44.2) [place] % (Auto) 6.6 % % (2.6-8.5) Eos % (Auto) 0.4 % % (0-4.4) Baso % (Auto) 0.2 % % (0.2-1.2) Lymph # (Auto) 2.33 K/mm3 K/mm3 (0.9-3.2) [place] # (Auto) 0.6 K/mm3 K/mm3 (0.1-0.6) Eos # (Auto) 0.0 K/mm3 K/mm3 (0-0.3) Baso # (Auto) 0.0 K/mm3 K/mm3 (0.0-0.1) Abs Immat Gran (auto) 0.03 K/mm3 K/mm3 (0.00-0.031) Absolute Neuts (auto) 6.4 K/mm3 K/mm3 (1.3-6.7) Absolute Nucleated RBC 0.0 K/mm3 K/mm3 (0.0-0.012) Nucleated RBC % 0.0 % % (0.0-0.2) RPR Pending Blood Type AB Positive Antibody Screen Negative Patient hx anesthesia problems: none Family hx anesthesia problems: none Results Review: All pre-operative results and documents have been reviewed as part of the pre-operative evaluation. [facility] Past Medical History Medical History (Updated 01/15/22 @ 06:36 by Nadia Hartman CRNA) Anxiety and depression Asthma Non-recurrent acute suppurative otitis media of left ear without spontaneous rupture of tympanic membrane Unspecified disorder of vestibular function, bilateral Family History Family History Grandparent Diabetes mellitus Mother Gestational diabetes Sibling Asthma Sibling Asthma Grandparent Hypertension Grandparent Diabetes mellitus Other Cerebrovascular accident Social History Social History Smoking status: Never smoker Second hand tobacco smoke exposure: No Alcohol intake: never Substance use: never Lack of Transportation: No Lack of Food: Never True Current Housing: I Have Housing Concerned About Future Housing: No Difficulty Paying Gas/Electric Bills: No Difficulty Paying for Meds: No Currently Unemployed: No Education: Master's Degree or Higher Difficulty w/ Childcare or Family Care: No Gender identity (if verbalized by the patient): Female Spiritual care concerns: No Exam Day of Procedure 01/15/22 06:35 Patient weight: obese Heart: regular rate and rhythm Lungs: normal air movement Airway: Mallampati scale Neurological: alert and oriented
--- NOTE | 2022-01-15 07:48 | PM.IMHP ---
H&P: HPI History of Present Illness Date/Time: 01/15/22 07:48 Chief Complaint: Term . Elective induction of labor. Review of Systems Review of Systems: All systems reviewed & are unremarkable except as noted in HPI and below Constitutional: Constitutional: Reports as per HPI and Reports no additional constitutional complaints Eyes: Eyes: Reports as per HPI ENT: Reports system reviewed and no additional complaints, except as documented Cardiovascular: Cardiovascular: Reports as per HPI Respiratory: Respiratory: Reports as per HPI Gastrointestinal: Gastrointestinal: Reports as per HPI Genitourinary: Genitourinary: Reports no additional female genitourinary complaints Musculoskeletal: Musculoskeletal: Reports no additional musculoskeletal complaints Integumentary/Breasts: Skin/Breast: Reports system reviewed and no additional complaints, except as docu Neurologic: Reports system reviewed and no additional complaints, except as documented Psychiatric: Psychiatric: Reports no additional psychiatric complaints Endocrine: Endocrine: Reports no additional endocrine complaints Hematologic/Lymphatic: Hematologic/Lymphatic: Reports no additional hematologic/lymphatic complaints Allergic/Immunologic: Allergic/Immunologic: Reports no additional allergic/immunologic complaints [facility] Past Medical History Medical History (Updated 01/15/22 @ 06:36 by Nadia Hartman CRNA) Anxiety and depression Asthma Non-recurrent acute suppurative otitis media of left ear without spontaneous rupture of tympanic membrane Unspecified disorder of vestibular function, bilateral Family History Family History Grandparent Diabetes mellitus Mother Gestational diabetes Sibling Asthma Sibling Asthma Grandparent Hypertension Grandparent Diabetes mellitus Other Cerebrovascular accident Social History Social History Smoking status: Never smoker Second hand tobacco smoke exposure: No Alcohol intake: never Substance use: never Lack of Transportation: No Lack of Food: Never True Current Housing: I Have Housing Concerned About Future Housing: No Difficulty Paying Gas/Electric Bills: No Difficulty Paying for Meds: No Currently Unemployed: No Education: Master's Degree or Higher Difficulty w/ Childcare or Family Care: No Gender identity (if verbalized by the patient): Female Spiritual care concerns: No Meds Home Medications and Allergies Home Medications Medication Instructions Recorded Confirmed Type sertraline 50 mg tablet (Zoloft) 50 mg PO DAILY 08/10/19 01/15/22 History prenat.vits,hilario,ygb-uhur-bgnpk 1 tablet PO HS 12/21/21 12/21/21 History Allergies Allergy/AdvReac Type Severity Reaction Status Date / Time amoxicillin Allergy Unknown Rash Verified 01/29/21 14:07 vancomycin AdvReac Mild Rash Verified 01/29/21 14:07 Vital Signs Vital Signs - 24 hr 01/15/22 00:44 01/15/22 01:20 01/15/22 02:10 Temperature 97.5 F L Pulse Rate 75 Respiratory Rate 18 Blood Pressure 102/58 L Pulse Oximetry Oxygen Delivery Room Air 01/15/22 02:15 01/15/22 02:30 01/15/22 02:46 Temperature Pulse Rate 63 79 80 Respiratory Rate Blood Pressure 99/47 L 98/51 L 93/36 L Pulse Oximetry Oxygen Delivery 01/15/22 03:00 01/15/22 03:06 01/15/22 03:15 Temperature Pulse Rate 67 62 62 Respiratory Rate Blood Pressure 93/43 L 89/40 L 90/45 L Pulse Oximetry Oxygen Delivery 01/15/22 03:30 01/15/22 03:45 01/15/22 04:00 Temperature Pulse Rate 73 76 75 Respiratory Rate Blood Pressure 89/48 L 101/51 L 97/49 L Pulse Oximetry Oxygen Delivery 01/15/22 04:15 01/15/22 04:24 01/15/22 04:26 Temperature Pulse Rate 71 70 80 Respiratory Rate Blood Pressure 80/36 L 88/43 L 85/44 L Pulse Oximetry Oxygen Delivery
--- NOTE | 2022-01-15 07:48 | WPDOBADMIT ---
Obstetrics - Admit Note Admission Note: 32 y/o @ 39w2d here for induction of labor. GBS positive. PCN allergic. Clinda susceptible but was initially treated with ancef according to labor orders. However, nursery orders require use of clindamycin if susceptible. Will switch to clinda and delay rupture of membranes. record reviewed. No pertinent additions to the history and/or any subsequent changes in the physical findings that are not consistent with the expected course of the were found. Additions to the history and/or subsequent changes in the physical findings follow. None.
[2022-01-15] MEDS: CLINDAMYCIN 900 MG/D5W 50 ML 900 MG/50 ML PIGGYBACK 50 MG IVPB (07:54)
[2022-01-15] MEDS: PHENYLEPHRINE 1,000 MCG/10 ML SYRINGE 100 MCG IV PUSH ×3 (08:04→08:48)
[2022-01-15 09:04] LABS: Rapid Plasma Reagin Non-Reactive (NonReactive)
--- NOTE | 2022-01-15 12:01 | PM.OBPRVD ---
OB - Delivery Note Procedure Delivery date: 01/15/22 Procedure: Induction method: Per Pitocin Protocol Delivery monitor: External FHT and External Uterine Route of delivery: Episiotomy description: None Laceration Description: Perineal - 1st Degree Delivery repair: vicryl Quantitative Blood Loss (ml): 124 Anesthesia type: Epidural Narrative: Nuchal cord unable to reduce and cord around the body. Delivered without difficulty. Mother and baby instable condition. Cord gasses collected and handed off to staff. [place] Baby Date of : 01/15/22 Time of : 11:38 Weeks of gestation at delivery: 39 gender: Male presentation: vertex position: Left Occiput Anterior Placenta delivery description: Spontaneous Cord Vessel Description: 3 Vessels, Nuchal Cord and Around Body
--- NOTE | 2022-01-15 14:39 | OBPPTRN ---
Patient transferred to post room #278 via wheelchair. Support person present. Oriented to unit, room, information board, rooming in, admission packet and security measures. Patient verbalizes understanding.
[2022-01-15] MEDS: DOCUSATE SODIUM 100 MG CAPSULE PO (16:41)
[2022-01-15] MEDS: IBUPROFEN 600 MG TABLET PO (16:49)
[2022-01-15] MEDS: ACETAMINOPHEN 325 MG TABLET 650 MG PO (16:49)
[2022-01-16] VITALS: BP 107/57; PULSE 60; RESP 18; TEMP 36.3; O2SAT 99
[2022-01-16 04:15] VITALS: BP 113/60; PULSE 80; RESP 18; TEMP 36.6; O2SAT 98
[2022-01-16] MEDS: IBUPROFEN 600 MG TABLET PO ×4 (04:16→22:19)
[2022-01-16] MEDS: ACETAMINOPHEN 325 MG TABLET 650 MG PO ×3 (04:16→22:20)
[2022-01-16 05:17] LABS: Hematocrit 29.5 % (37.0-47.0); Hemoglobin 9.5 g/dL (12.0-15.0)
--- NOTE | 2022-01-16 07:42 | WPDANLDPN2 ---
Anes-Prog Note L&D Date/Time: 01/16/22 07:42 Comfortable throughout: delivery Neuraxial method: epidural Epidural/Spinal procedure site: clean & non-tender Neuro status: Neuro function grossly intact. Cardiovascular status: normal Respiratory status: normal Airway patency: baseline Mental status: baseline Post-Op hydration status: normal Vital Signs: Last Vital Signs Temp 36.6 C 01/16/22 04:15 Pulse 80 01/16/22 04:15 Resp 18 01/16/22 04:15 BP 113/60 01/16/22 04:15 Pulse Ox 98 01/16/22 04:15 O2 Del Method Room Air 01/15/22 15:00 Pain score (VAS): <3 I/O: Intake & Output 01/15/22 01/15/22 01/16/22 15:59 23:59 07:59 Intake Total 1550 Balance 1550 Post-procedural complaints: none Patient feedback: Patient satisfied with anesthetic care.
[2022-01-16 09:15] VITALS: BP 91/57; PULSE 65; RESP 18; TEMP 36.4; O2SAT 99
[2022-01-16] MEDS: MULTIVIT/MIN/PREN/FOL AC/IRON TABLET 1 TAB PO (09:16)
[2022-01-16] MEDS: DOCUSATE SODIUM 100 MG CAPSULE PO ×2 (09:17→16:33)
[2022-01-16] MEDS: POLYSACCHARIDE IRON COMPLEX 150 MG CAPSULE PO ×2 (09:17→16:33)
--- NOTE | 2022-01-16 10:39 | P.PNOB_ITS ---
OB - PN: Subj Subjective Date/time seen: 01/16/22 10:39 Patient comments: no complaints baby status: doing well [place] feeding status: exclusively breast feeding OB - PN: Obj Data Labs CBC & Chem 7: 01/16/22 04:31 Labs: Laboratory Results - last 24 hr 01/16/22 04:31 Hgb 9.5 L Hct 29.5 L OB - PN A/P Plan day: 1 Plan: routine care Time Spent With Patient Time: Total time spent is greater than 50% in coordination of care (as documented) at patient's floor/unit and/or counseling patient: Time with patient: less than 15 minutes Review of Systems Review of Systems: All systems reviewed & are unremarkable except as noted in HPI and below Exam Narrative: Fundus firm and vaginal flow controlled. No lower ext redness, warmth, or edema. Negative homans. Const: General: comfortable Chest: Breast/axilla inspection: normal inspection of the breasts Resp: Effort & Inspection: normal respiratory effort Cardio: Rate: regular rate GI: GI Palp: Yes Soft to palpation Psych: Appearance: grossly normal Affect: normal affect Attitude: cooperative Thought content: Yes Normal thought content present Judgement: Good judgement present (Psych)
[2022-01-16] MEDS: SERTRALINE HCL 50 MG TABLET PO (11:23)
[2022-01-16 12:45] VITALS: BP 108/58; PULSE 81; RESP 18; TEMP 36.9; O2SAT 99
[2022-01-16 20:25] VITALS: BP 108/57; PULSE 65; RESP 16; TEMP 36.5; O2SAT 96
[2022-01-17] MEDS: IBUPROFEN 600 MG TABLET PO (05:52)
[2022-01-17] MEDS: POLYSACCHARIDE IRON COMPLEX 150 MG CAPSULE PO (07:42)
[2022-01-17] MEDS: MULTIVIT/MIN/PREN/FOL AC/IRON TABLET 1 TAB PO (07:42)
[2022-01-17] MEDS: DOCUSATE SODIUM 100 MG CAPSULE PO (07:43)
[2022-01-17 07:44] VITALS: BP 104/60; PULSE 66; RESP 18; TEMP 36.7; O2SAT 97
[2022-01-17] MEDS: SERTRALINE HCL 50 MG TABLET PO (08:00)
--- NOTE | 2022-01-17 09:21 | PM.OBPNVD ---
OB - PN: Subj Subjective Date/time seen: 01/17/22 09:21 Patient comments: no complaints baby status: doing well OB - PN: Obj Data Labs CBC & Chem 7: 01/16/22 04:31 OB - PN A/P Plan day: 2 Plan: routine care and discharge home (F/U in 4 weeks) Time Spent With Patient Time: Total time spent is greater than 50% in coordination of care (as documented) at patient's floor/unit and/or counseling patient: Time with patient: less than 15 minutes Review of Systems Review of Systems: All systems reviewed & are unremarkable except as noted in HPI and below Exam Narrative: Fundus firm and vaginal flow controlled. No lower ext redness, warmth, or edema. Negative homans. Const: General: comfortable Chest: Breast/axilla inspection: normal inspection of the breasts Resp: Effort & Inspection: normal respiratory effort Cardio: Rate: regular rate GI: GI Palp: Yes Soft to palpation Psych: Appearance: grossly normal Affect: normal affect Attitude: cooperative Thought content: Yes Normal thought content present Judgement: Good judgement present (Psych)
--- NOTE | 2022-01-17 09:22 | PM.OBDSVD ---
DS: Admitting Diagnosis Discharge Date 01/17/22 Admitting Diagnosis Induction of labor. Term . OB - DS: Summary Hospital Course Hospital Course: Unremarkable OB Procedures : None OB Procedures Intrapartum: Spontaneous Vag Delivery OB Procedures: : None Peripartum Data Procedures: Status at Discharge Cognitive/behavioral status at discharge: Stable Time Spent with Patient Time attestation: Total time spent providing and/or coordinating discharge services: Exam Narrative: Fundus firm and vaginal flow controlled. No lower ext redness, warmth, or edema. Negative homans. Const: General: comfortable Chest: Breast/axilla inspection: normal inspection of the breasts Resp: Effort & Inspection: normal respiratory effort Cardio: Rate: regular rate GI: GI Palp: Yes Soft to palpation Psych: Appearance: grossly normal Affect: normal affect Attitude: cooperative Thought content: Yes Normal thought content present Judgement: Good judgement present (Psych) Discharge Plan Discharge Discharging Clinician: Lorena Larson Patient Disposition: Home, Self-Care Activity: pelvic rest Diet: as tolerated Patient Instructions: Antibiotic Form Stand Alone Forms: General Discharge Information Follow-up/Referrals: Lorena Larson CNM [Certified Nurse Oil Pipe Inspector] - Discharge Medications: Continued sertraline [Zoloft] 50 mg Tablet 50 mg PO DAILY prenat.vits,hilario,ypg-zuaa-esecn Tablet 1 tablet PO HS Date of admission: 01/15/22 00:03 Primary Care Provider: Brittany Contreras Admitting Provider: Yulia Hylton Attending physician on admission: Yulia Hylton Condition: Stable
[2022-01-17] MEDS: ACETAMINOPHEN 325 MG TABLET 650 MG PO (11:08)
--- NOTE | 2022-01-17 13:43 | PC.NURSE ---
0744 Patient was given the opportunity to view the discharge video Mother & Baby Care, The First Two Weeks and to ask questions. Patient declined viewing the video and has been given the mother/baby guide for home reference.
[2022-01-19 11:15] VITALS: BP 113/65; PULSE 80; RESP 20; TEMP 36.8; O2SAT 99
== END 2022-01-17 11:51 | disposition home or self-care (01) | DRG 807 ==
LOC: ANHLDR 00:07 → ANHOB2 14:46
PROVIDERS: Advanced Practice Midwife; Admitting Provider Obstetrics & Gynecology; PCP Family Medicine; Visit Provider Obstetrics & Gynecology
DX: O99.824 Streptococcus B carrier state complicating childbirth (principal); Z37.0 Single live birth; Z3A.39 39 weeks gestation of pregnancy; O70.0 First degree perineal laceration during delivery; O69.81X0 Labor and delivery complicated by cord around neck, without compression, not applicable or unspecified; O99.344 Other mental disorders complicating childbirth; F41.8 Other specified anxiety disorders
CPT/HCPCS: 36415; 85014; 85018; 85025; 86592; 86850; 86900; 86901; A9270; J0690; J2370; J2590; J2795; J7120

== ENCOUNTER 2023-04-25 08:04 | Observation (INO) | payer OTHER, SELFPAY ==
[2023-04-25 09:00] VITALS: BMI 41.6
--- NOTE | 2023-04-25 10:42 | LDADM ---
This patient, Mami Rodriguez, was admitted to Labor/Delivery/Recovery 106 on 04/25/23 at 08:04. Plans for labor, pain management and were discussed with patient. Patient/family oriented to hospital policies and general routines including ID bracelet, bed and alarms, visiting hours, pain management, procedures, bathroom and other care routines, personal items, smoking policy, room service/diet and guest tray routines, infant security routines, and visiting hours. Patient/Family are encouraged to report perceived risks to care and to ask questions if they do not understand what they are told or what they should do. See OBIX for further documentation.
--- NOTE | 2023-04-26 09:48 | PM.OBTRLD ---
OB - Triage/Final Diagnosis Visit Information Date of evaluation: 04/25/23 Reason for evaluation: threatened labor Comments/Additional reasons for admission: I have assessed the risk for this patient, Mami Rodriguez, and determined that she would benefit from observation care.
== END 2023-04-25 10:51 | disposition home or self-care (01) ==
PROVIDERS: Admitting Provider Obstetrics & Gynecology; PCP Family Medicine; Referring Provider Advanced Practice Midwife; Visit Provider Obstetrics & Gynecology
DX: O47.1 False labor at or after 37 completed weeks of gestation (principal); Z3A.38 38 weeks gestation of pregnancy
CPT/HCPCS: G0378; G0379

== ENCOUNTER 2023-05-08 00:31 | Inpatient (IN) | payer OTHER, SELFPAY ==
[2023-05-08] VITALS (46 sets, daily range): BP systolic 91–142; BP diastolic 34–115; PULSE 62–211; RESP 16–18; TEMP 36.4–36.8; O2SAT 97–100; BMI 42.3
[2023-05-08 01:24] LABS: Basophils Percent Auto 0.4 % (0.2-1.2); Eosinophils Absolute Auto 0.1 K/mm3 (0-0.3); Eosinophils Percent Auto 0.7 % (0-4.4); Hematocrit 37.9 % (37.0-47.0); Hemoglobin 12.4 g/dL (12.0-15.0); Immature Granulocyte Absolute 0.02 K/mm3 (0.00-0.031); Immature Granulocyte Percent A 0.2 % (0-0.5); Lymphocytes Absolute Auto 2.33 K/mm3 (0.9-3.2); Lymphocytes Percent Auto 27.8 % (18.3-44.2); Mean Corpuscular HGB Conc 32.7 g/dl (32-36); Mean Corpuscular Hemoglobin 29.5 pg (26-34); Mean Corpuscular Volume 90.2 fl (80-100); Mean Platelet Volume 10.7 fl (7.4-10.4); Monocytes Absolute Auto 0.5 K/mm3 (0.1-0.6); Monocytes Percent Auto 5.6 % (2.6-8.5); Neutrophils Absolute Auto 5.5 K/mm3 (1.3-6.7); Neutrophils Percent Auto 65.3 % (45.5-73.1); Platelet Count Result 148 k/mm3 (150-375); Red Cell Distribution Width 14.1 % (11.5-14.5); White Blood Count 8.4 K/mm3 (4.5-10.0)
[2023-05-08] MEDS: LACTATED RINGERS 1,000 ML 125 ML IV CONT ×3 (01:29→04:01)
[2023-05-08] MEDS: CLINDAMYCIN 900 MG/D5W 50 ML 900 MG/50 ML PIGGYBACK 50 MG IVPB (01:29)
--- NOTE | 2023-05-08 02:40 | WPDANESEPP ---
Anes - Eval Pre Procedure Procedure: Labor epidural Date/Time: 05/08/23 02:40 Surgeon: Serina Preop Diagnosis: Abdominal pain with contractions Pre Op Diagnosis: Contractions Patient Data Age: 33 Gender: F Height: 1.75 m Weight: 130 kg Last Vital Signs Pulse 87 05/08/23 02:32 BP 111/70 05/08/23 02:32 Allergies Allergy/AdvReac Type Severity Reaction Status Date / Time amoxicillin Allergy Unknown Rash Verified 04/20/23 14:53 vancomycin AdvReac Mild Rash Verified 04/20/23 14:53 Home Medications Medication Instructions Recorded Confirmed Type prenat.vits,hilario,iom-bmtb-ljhpe 1 tablet PO HS 12/21/21 05/08/23 History Laboratory Tests 05/08/23 01:15 WBC 8.4 K/mm3 (4.5-10.0) RBC 4.20 M/mm3 (4.2-5.4) Hgb 12.4 g/dL (12.0-15.0) Hct 37.9 % (37.0-47.0) MCV 90.2 fl (80-100) MCH 29.5 pg (26-34) MCHC 32.7 g/dl (32-36) RDW 14.1 % (11.5-14.5) Plt Count 148 L k/mm3 (150-375) MPV 10.7 H fl (7.4-10.4) Immature Gran % (Auto) 0.2 % (0-0.5) Neut % (Auto) 65.3 % (45.5-73.1) Lymph % (Auto) 27.8 % (18.3-44.2) [place] % (Auto) 5.6 % (2.6-8.5) Eos % (Auto) 0.7 % (0-4.4) Baso % (Auto) 0.4 % (0.2-1.2) Lymph # (Auto) 2.33 K/mm3 (0.9-3.2) [place] # (Auto) 0.5 K/mm3 (0.1-0.6) Eos # (Auto) 0.1 K/mm3 (0-0.3) Baso # (Auto) 0.0 K/mm3 (0.0-0.1) Abs Immat Gran (auto) 0.02 K/mm3 (0.00-0.031) Absolute Neuts (auto) 5.5 K/mm3 (1.3-6.7) Absolute Nucleated RBC 0.000 K/mm3 (0.0-0.012) Nucleated RBC % 0.0 % (0.0-0.2) RPR Pending Blood Type AB Positive Antibody Screen Negative : gestational age HCG: positive Patient hx anesthesia problems: none Family hx anesthesia problems: none Results Review: All pre-operative results and documents have been reviewed as part of the pre-operative evaluation. [facility] Past Medical History Medical History Anxiety and depression Asthma Morbid obesity Non-recurrent acute suppurative otitis media of left ear without spontaneous rupture of tympanic membrane Unspecified disorder of vestibular function, bilateral Family History Family History Grandparent Diabetes mellitus Mother Gestational diabetes Sibling Asthma Sibling Asthma Grandparent Hypertension Grandparent Diabetes mellitus Other Cerebrovascular accident Social History Social History Smoking status: Never smoker Second hand tobacco smoke exposure: No Alcohol intake: never Substance use: never Do You Feel Safe in your Home?: Yes Lack of Transportation: No Lack of Food: Never True Current Housing: I Have Housing Concerned About Future Housing: No Difficulty Paying Gas/Electric Bills: No Difficulty Paying for Meds: No Currently Unemployed: No Education: Master's Degree or Higher Difficulty w/ Childcare or Family Care: No Gender identity (if verbalized by the patient): Female Spiritual care concerns: No Exam Day of Procedure 05/08/23 02:40 Patient weight: morbidly obese Heart: regular rate and rhythm
[2023-05-08] MEDS: OXYTOCIN 30 UNITS/NS 500 ML 30 UNITS/500 ML BAG IV CONT (04:02)
[2023-05-08] MEDS: ONDANSETRON INJ 4 MG/2 ML VIAL IV PUSH (04:02)
--- NOTE | 2023-05-08 06:47 | WPDOBADMIT ---
Obstetrics - Admit Note Admission Note: record reviewed. No pertinent additions to the history and/or any subsequent changes in the physical findings that are not consistent with the expected course of the were found. Additions to the history and/or subsequent changes in the physical findings follow. pt admitted in active labor.
--- NOTE | 2023-05-08 06:48 | PM.OBPRVD ---
OB - Vaginal Delivery Note Procedure Delivery date: 05/08/23 Delivery monitor: External FHT and External Uterine Route of delivery: Episiotomy description: None Laceration Description: None Specimen: No Quantitative Blood Loss (ml): 25 Anesthesia type: Epidural Disposition: Floor Complications: No immediate complications Baby Date of : 05/08/23 Time of : 06:36 Weeks of gestation at delivery: 40 gender: Female presentation: vertex position: Left Occiput Anterior Placenta delivery description: Spontaneous Cord Vessel Description: 3 Vessels score one minute: 9 score five minutes: 9 Narrative: mother and baby skin to skin in stable condition
[2023-05-08] MEDS: OXYTOCIN 30 UNITS/NS 500 ML 30 UNITS/500 ML BAG 125 UNITS IV CONT (07:13)
[2023-05-08] MEDS: IBUPROFEN 600 MG TABLET PO ×2 (09:14→17:38)
[2023-05-08] MEDS: BENZOCAINE 20% AER SPR (*SP) 56 GM CAN 1 SPRAY TOPICAL (09:16)
[2023-05-08] MEDS: WITCH HAZEL 40 PADS 1 PAD TOPICAL (09:16)
--- NOTE | 2023-05-08 10:23 | OBPPTRN ---
Patient transferred to post room #282 via wheelchair. Support person present. Oriented to unit, room, information board, rooming in, admission packet and security measures. Patient verbalizes understanding.
[2023-05-09] MEDS: IBUPROFEN 600 MG TABLET PO (04:25)
[2023-05-09 04:45] VITALS: BP 110/54; PULSE 60; RESP 18; TEMP 36; O2SAT 98
[2023-05-09 04:53] LABS: Hematocrit 32.8 % (37.0-47.0); Hemoglobin 10.8 g/dL (12.0-15.0)
[2023-05-09 07:45] VITALS: BP 106/59; PULSE 71; RESP 16; TEMP 36.5; O2SAT 99
--- NOTE | 2023-05-09 07:58 | WPDANLDPN2 ---
Anes-Prog Note L&D Date/Time: 05/09/23 07:58 Comfortable throughout: labor and delivery Neuraxial method: epidural Epidural/Spinal procedure site: clean & non-tender Neuro status: Neuro function grossly intact. Cardiovascular status: normal Respiratory status: normal Airway patency: baseline Mental status: baseline Post-Op hydration status: normal Vital Signs: Last Vital Signs Temp 36.0 C L 05/09/23 04:45 Pulse 60 05/09/23 04:45 Resp 18 05/09/23 04:45 BP 110/54 L 05/09/23 04:45 Pulse Ox 98 05/09/23 04:45 O2 Del Method Room Air 05/09/23 04:45 Pain score (VAS): 1 I/O: Intake & Output 05/08/23 05/08/23 05/09/23 15:59 23:59 07:59 Output Total 150 Balance -150 Patient feedback: Patient satisfied with anesthetic care.
[2023-05-09] MEDS: POLYSACCHARIDE IRON COMPLEX 150 MG CAPSULE PO (08:18)
[2023-05-09] MEDS: MULTIVIT/MIN/PREN/FOL AC/IRON TABLET 1 TAB PO (08:18)
[2023-05-09] MEDS: DOCUSATE SODIUM 100 MG CAPSULE PO (08:19)
--- NOTE | 2023-05-09 09:36 | PM.OBPNVD ---
OB - PN: Subj Subjective Date/time seen: 05/09/23 09:36 Interval history: PPD1 doing well, pain well controlled general diet passing flatus emptying bladder without issue desires d/c home today OB - PN: Obj Data Labs 05/09/23 04:26 Labs: Laboratory Results - last 24 hr 05/09/23 04:26 Hgb 10.8 L Hct 32.8 L OB - PN A/P Plan day: 1 Plan: routine care, discharge home and follow up 6 weeks Time Spent With Patient Time: Total time spent is greater than 50% in coordination of care (as documented) at patient's floor/unit and/or counseling patient: Review of Systems Review of Systems: All systems reviewed & are unremarkable except as noted in HPI and below Exam Narrative: Fundus firm and vaginal flow controlled. No lower ext redness, warmth, or edema. Negative homans. Const: General: comfortable Resp: Effort & Inspection: normal respiratory effort Cardio: Rate: regular rate Psych: Appearance: grossly normal Affect: normal affect Attitude: cooperative Thought content: Yes Normal thought content present Judgement: Good judgement present (Psych)
--- NOTE | 2023-05-09 09:38 | PM.OBDSVD ---
DS: Admitting Diagnosis Discharge Date 05/09/23 Admitting Diagnosis labor DS: Discharge Diagnosis Discharge Diagnosis (1) (spontaneous vaginal delivery): Code(s): O80 - Encounter for full-term uncomplicated delivery Status: Acute OB - DS: Summary OB Procedures : None OB Procedures Intrapartum: Spontaneous Vag Delivery OB Procedures: : None Peripartum Data Laceration Description: None Episiotomy description: None Time Spent with Patient Time attestation: Total time spent providing and/or coordinating discharge services: DS: Data Data Completed and Pending Labs on day of discharge: Labs from last 24 hours 05/09/23 04:26 Hgb 10.8 L Hct 32.8 L Discharge Plan Discharge Attending physician on discharge: Henry Scott Discharging Clinician: Henry Scott Patient Disposition: Home, Self-Care Activity: may shower and pelvic rest Diet: as tolerated Patient Instructions: Antibiotic Form Stand Alone Forms: General Discharge Information Follow-up/Referrals: Teresa Smalls MD [Physician] - 5 Weeks Discharge Medications: New ibuprofen 600 mg Tablet 600 mg PO Q6H PRN (Reason: Cramping) Qty: 30 0RF docusate sodium 100 mg Capsule 100 mg PO BID PRN (Reason: Constipation) Qty: 60 0RF Continued prenat.vits,hilario,qmw-bwst-efcmq Tablet 1 tablet PO HS Date of admission: 05/08/23 00:31 Primary Care Provider: Brittany Contreras Admitting Provider: Teresa Smalls Attending physician on admission: Teresa Smalls Condition: Stable
--- NOTE | 2023-05-09 10:48 | PC.NURSE ---
1015 Introductions were made, then consulted with patient to assess needs related to . Mother led the conversation with her?plans to feed?her and the?experience so far. Mother verbalizes she is able to independently latch with appropriate positioning and alignment. latched optimally to the both breasts in cross cradle position. Infant was able to maintain latch without pain to mother protecting the nipple with optimal positioning and latching. Reviewed comfort measures of healing with a warm, wet washcloth to rinse breast, then leave open to air-dry, good handwashing when or touching the breast/nipples to prevent infection as needed. She denies any nipple discomfort and is responsively . Infant is currently meeting outcomes for weight, output, jaundice, blood sugar and feeding frequencies of 8-12 times in 24 hours. Reinforced understanding of milk production, transition of milk, signs of adequate intake, transition of stool, prevention/relief of engorgement, plugged ducts, mastitis, responsive watching for feeding cues, the different methods of stimulating infant to breastfeed 1-3 hours after the start of the last feeding, community resources, and when to call a provider using the resource of the feeding sheet along with the mom and baby guide. Mother voiced understanding of the information shared, is confident to continue effectively her at home, when to call for assistance, denies any additional assistance or education at this time. Mother is encouraged to call for assistance with latching, questions or concerns. Mother voiced understanding of information shared along with the mom/baby guide for an additional resource. Reported to the Primary RN.
[2023-05-09 16:14] LABS: Rapid Plasma Reagin Non-Reactive (NonReactive)
[2023-05-10 10:40] VITALS: BP 117/75; PULSE 68; RESP 18; TEMP 36.9; O2SAT 100
== END 2023-05-09 12:11 | disposition home or self-care (01) | DRG 807 ==
LOC: ANHOB2 05-09 11:45 → ANHLDR 05-10 12:34 → ANHOB2 05-10 12:34
PROVIDERS: Advanced Practice Midwife; Admitting Provider Obstetrics & Gynecology; PCP Family Medicine; Visit Provider Obstetrics & Gynecology
DX: O99.824 Streptococcus B carrier state complicating childbirth (principal); Z37.0 Single live birth; Z3A.40 40 weeks gestation of pregnancy
CPT/HCPCS: 36415; 85014; 85018; 85025; 86592; 86850; 86900; 86901; A9270; J2405; J2590; J2795; J7120

== ENCOUNTER 2024-11-05 09:22 | Observation (INO) | payer OTHER, SELFPAY ==
--- NOTE | ~2024-11-05 | US_ITS ---
EXAMINATION: US OB BPP wo non-stress DATE: 11/05/2024 12:35 INDICATION: Unable to 2 trace baby continuously during third trimester TECHNIQUE: Real-time pelvic ultrasound was performed. The interpreting radiologist was not present for the study. COMPARISON: None. FINDINGS: There is a single living fetus in vertex presentation. The placenta is anterior. heart rate is 135 beats per minute (bpm). Normal amniotic fluid index of 12.6 cm (5th%-95%: 7.5-24.4 cm at 37 weeks estimated gestational age). Biophysical profile performed by the technologist: breathing (30 sec sustained breathing in 30 minutes): 2 out of 2 movement (3 gross body movements in 30 minutes): 2 out of 2 tone (one episode of aetsujg-dwduekmcx-wewtxdr limb movement): 2 out of 2 Amniotic fluid pocket (2 cm): 2 out of 2 Total score: 8 out of 8 IMPRESSION: 1. Single living fetus in vertex presentation with heart rate of 135 bpm. 2. Biophysical profile 8 out of 8. 3. Normal amniotic fluid index of 12.6 cm. Reviewed, dictated and finalized at location A.
[2024-11-05 10:37] VITALS: BP 98/53; PULSE 70
[2024-11-05 10:44] LABS: Add Urine Microscopic? NO; Appearance Urine Clear (Clear); Glucose Urine UA Negative (Negative); Leukocyte Esterase Ur Negative LEU/UL (Negative); Nitrate Urine Negative (Negative); Specific Grav Ur 1.004 (1.001-1.035)
[2024-11-05 10:47] VITALS: BP 105/55; PULSE 65
[2024-11-05 11:02] VITALS: BP 94/45; PULSE 69
[2024-11-05 11:17] VITALS: BP 87/34; PULSE 63
--- NOTE | 2024-11-05 11:36 | PC.NURSE ---
Anival Smith called to update on the pt. Pt reports having ctx 5 min apart with pressure in her vagina. SVE remains unchanged after 2 hours of monitoring. CNM notified that baby has been hard to monitor continuously but has been reactive. Contractions have spaced out however she continues to have pain intermittently. CNM ordered BPP.
[2024-11-05 11:44] VITALS: BMI 42.3
--- OUTSIDE RECORDS SUMMARY | 2024-11-05 11:52 | XMS_ITS | Clinical Summary ---
Author Organization [facility] [address] [facility] Address [address] [place] [address] Care Team Providers Care Life Manager Name Role Phone Brittany Contreras MD Primary Care Provider + Salud Tidwell DO Unavailable [phone] Allergies No known active allergies Medications meclizine (ANTIVERT) 25 mg tablet take 1 tablet by oral route 3 times every day as needed 0 0 6 Active albuterol HFA (PROVENTIL HFA,VENTOLIN HFA) 90 mcg/actuation inhaler inhale 1 - 2 puff by inhalation route every 4 - 6 hours as needed 1 Inhaler 0 6 Active fluticasone (FLONASE) 50 mcg/actuation nasal spray inhale 2 spray by intranasal route every day in each nostril 1 spray 0 6 Active sertraline (ZOLOFT) 50 mg tablet Take 50 mg by mouth daily 1 Active Active Problems No known active problems Surgical History Surgery Date Site/Laterality Comments WISDOM TOOTH EXTRACTION wisdom teeth extraction NO PAST SURGERIES Medical History Medical History Date Comments Asthma Family History Medical History Relation Name Comments No Known Problems Father Gestational diabetes Mother Hypertension Mother Relation Name Status Comments Father Alive Mother Alive Social History Tobacco Use Types Packs/Day Years Used Date Smoking Tobacco: Former Smokeless Tobacco: Never Alcohol Use Standard Drinks/Week Comments No 0 (1 standard drink = 0.6 oz pur e alcohol) Personal Safety Answer Date Recorded Getting School Help Needed Not on file 04/23 Comments Unknown Sex and Gender Information Value Date Recorded Sex Assigned at Not on file Legal Sex Female 8:45 AM CDT Gender Identity Not on file Sexual Orientation Not on file Obstetrics History Last Filed Vital Signs Vital Sign Reading Time Taken Comments Blood Pressure 128/66 11/11/2020 11:31 AM CDT Pulse 112 11/11/2020 11:31 AM CDT Temperature 39.1 C (102.3 F) 11/13/2020 10:04 AM CDT Respiratory Rate 18 11/11/2020 11:31 AM CDT Oxygen Saturation 99% 11/11/2020 11:31 AM CDT Inhaled Oxygen Concentration - - Weight 115.7 kg (255 lb) 11/11/2020 11:31 AM CDT Height 175.3 cm (5' 9) 11/11/2020 11:31 AM CDT Body Mass Index 37.66 11/11/2020 11:31 AM CDT Plan of Treatment Not on file Insurance [employer] OOS Care Teams Life Manager Relationship Specialty Start Date End Date Brittany Contreras MD PCP - General Family Medicine 11/11/20 Salud Tidwell, [address] [place] [address] 11/11/20
--- OUTSIDE RECORDS SUMMARY | 2024-11-05 11:52 | XMS_ITS | Clinical Summary ---
Author Organization [facility] Address [address] [place] [address] Care Team Providers Care City Administrator Name Role Phone Unavailable Primary Care Provider Unavailabl e Source Comments [facility],non-owned Affiliates and Associated Physician Practices is amultiple site organization consisting of ambulatory clinics and hospital sitesin [place], [place], [place] and [place]. This disclosure is being madepursuant to the Care Everywhere program and may not contain all information available regarding this patient. Last updated 17.[facility] Allergies Active Allergy Reactions Criticality Noted Date Comments Amoxicillin Urticaria Medium 05/18/2024 Medications * Be aware that medications may not be up to date on this document. Alwaysverify current medications with the patient. predniSONE (DELTASONE) 10 MG tablet 5 tabs po x2 days, 4 tabs po x2 days, 3 tabs po x2 days, 2 tabs po x2 days, 1 tab po x2 days 30 Tab 7 Active Additional Information Patient not taking.Reported on 05/17/2016 albuterol HFA (VENTOLIN HFA) 108 (90 BASE) MCG/ACT inhaler Inhale 2 Puffs by mouth every 6 hours as needed 1 Inhaler 7 Active sertraline (Zoloft) 25 MG tabletIndicatio ns:Generalized Anxiety Disorder Take 1 (one) tablet by mouth once daily Reasons: Generalized Anxiety Disorder Active Vit-Fe Fumarate-FA ( vitamin) 28-0.8 MG tabletIndicatio ns: Take 1 (one) tablet by mouth once daily Reasons: Active Active Problems Estimated Date of Delivery Comme nts Yes 11/21/2024 Based on last me nstrual period of 02/15/2024 No known active problems Family History Medical History Relation Name Comments Diabetes - Type 2 Paternal Grandfather Relation Name Status Comments Paternal Grandfather Social History Tobacco Use Types Packs/Day Years Used Date Smoking Tobacco: Never Smokeless Tobacco: Never Tobacco Cessation:Counseling Given: Not Answered Alcohol Use Standard Drinks/Week Comments Not Currently 0 (1 standard drink = 0.6 oz pur e alcohol) Estimated Date of Delivery Comme nts Yes 11/21/2024 Based on last me nstrual period of 02/15/2024 Sex and Gender Information Value Date Recorded Sex Assigned at Not on file Legal Sex Female 4:46 PM CDT Gender Identity Not on file Sexual Orientation Not on file Last Filed Vital Signs Vital Sign Reading Time Taken Comments Blood Pressure 102/67 05/23/2024 2:24 PM CDT Pulse 81 05/23/2024 2:24 PM CDT Temperature 36.6 C (97.9 F) 05/17/2016 10:23 AM CDT Respiratory Rate 16 05/17/2016 10:23 AM CDT Oxygen Saturation 97% 05/17/2016 10:23 AM CDT Inhaled Oxygen Concentration - - Weight 117.9 kg (260 lb) 05/23/2024 2:24 PM CDT Height 175.3 cm (5' 9) 05/23/2024 2:24 PM CDT Body Mass Index 38.4 05/23/2024 2:24 PM CDT Plan of Treatment Health Maintenance Due Date Last Done Comments HEPATITIS C SCREENING 12/27/2009 DTAP/TDAP/TD VACCINES (1 - Tdap) 12/31/2010 HEPATITIS B VACCINE (1 of 3 - 19+ 3-dose series) 12/31/2010 PAP SMEAR 12/31/2012 HPV VACCINE (1 - 3-dose SCDM series) 12/31/2018 DEPRESSION SCREENING 02/22/2024 OB-ONE HOUR GLUCOSE 08/15/2024 OB-TDAP CURRENT 08/22/20242023, 11/25/2021 OB-RHOGAM INJECTION 08/29/2024 OB-GROUP B STREP SCREEN 10/17/2024 COVID-19 VACCINE (3 2024-2 6 season) 2024 01/12/2021, 12/23/2020 INFLUENZA VACCINE (#1) 2024 2, 11/21/2019 ZOSTER VACCINE (1 of 2) 12/31/2041 HIV SCREENING Completed 05/09/2024 HIB VACCINE Aged Out No longer eligi ble based on patient's age to complete this topic MENINGOCOCCAL (Group B) VACCINE SHARED DECISION-MAKING Aged Out No longer eligible based on patient's age to complete this topic MENINGOCOCCAL GROUPS A/C/Y/W VACCINE Aged Out No longer eligible b ased on patient's age to complete this topic PNEUMOCOCCAL VACCINE Aged Out No long er eligible based on patient's age to complete this topic Respiratory Syncytial Virus (RSV) Vaccine Pt: or over 60 yrs (No Doses Required) Completed Insurance [facility]
--- NOTE | 2024-11-05 12:35 | PC.NURSE ---
BPP 07/29. Sky Smith notified. CNM okay with pt being discharged and seeing her on tue for her scheduled appointment. Strict labor precautions to be given.
--- NOTE | 2024-11-06 16:55 | P.PNOB_ITS ---
OB - Triage/Final Diagnosis Visit Information Date of evaluation: 11/05/24 Reason for evaluation: threatened labor Comments/Additional reasons for admission: I have assessed the risk for this patient, Mami Rodriguez, and determined that she would benefit from observation care. Evaluation Laboratory results: Laboratory Tests 11/05/24 10:38 Urine Color Yellow Urine Appearance Clear Urine pH 7.0 Ur Specific [place] 1.004 Urine Protein Negative Urine Glucose (UA) Negative Urine Ketones Negative Ur Blood (Man) Negative Urine Nitrate Negative Urine Bilirubin Negative Urine Urobilinogen 0.2 Ur Leukocyte Esterase Negative
== END 2024-11-05 12:50 | disposition home or self-care (01) ==
PROVIDERS: Advanced Practice Midwife; Admitting Provider Obstetrics & Gynecology; PCP Family Medicine; Visit Provider Obstetrics & Gynecology
DX: O47.1 False labor at or after 37 completed weeks of gestation (principal); Z3A.37 37 weeks gestation of pregnancy
CPT/HCPCS: 76819; 81003; G0378; G0379

== ENCOUNTER 2024-11-23 05:06 | Inpatient (IN) | payer OTHER, SELFPAY ==
[2024-11-23] VITALS (122 sets, daily range): BP systolic 102–133; BP diastolic 46–78; PULSE 52–161; RESP 16–17; TEMP 36.4–37.1; O2SAT 94–100; BMI 42.3
--- NOTE | 2024-11-23 06:54 | LDADM ---
This patient, Mami Rodriguez, was admitted to Labor/Delivery/Recovery 107 on 11/23/24 at 05:06. Plans for labor, pain management and were discussed with patient. Patient/family oriented to hospital policies and general routines including ID bracelet, bed and alarms, visiting hours, pain management, procedures, bathroom and other care routines, personal items, smoking policy, room service/diet and guest tray routines, infant security routines, and visiting hours. Patient/Family are encouraged to report perceived risks to care and to ask questions if they do not understand what they are told or what they should do. See OBIX for further documentation.
[2024-11-23 06:59] LABS: Hematocrit 37.1 % (37.0-47.0); Hemoglobin 12.4 g/dL (12.0-15.0); Immature Granulocyte Percent A 0.4 % (0-0.5); Lymphocytes Absolute Auto 1.40 K/mm3 (0.9-3.2); Mean Corpuscular HGB Conc 33.4 g/dl (32-36); Mean Corpuscular Hemoglobin 30.4 pg (26-34); Mean Corpuscular Volume 90.9 fl (80-100); Nucleated Red Blood Cells Absolute Auto 0.000 K/mm3 (0.0-0.012); Nucleated Red Blood Cells Perc 0.0 % (0.0-0.2); Platelet Count Result 146 k/mm3 (150-375); Red Blood Count 4.08 M/mm3 (4.2-5.4); White Blood Count 7.1 K/mm3 (4.5-10.0)
[2024-11-23] MEDS: ceFAZolin 2 GM in SODIUM CHLORIDE 0.9% IV 50 ML 100 ML IVPB (07:05)
[2024-11-23] MEDS: LACTATED RINGERS 1,000 ML 125 ML IV CONT ×2 (07:07→10:08)
[2024-11-23] MEDS: OXYTOCIN 30 UNITS/NS 500 ML 30 UNITS/500 ML BAG IV CONT (07:15)
[2024-11-23 07:36] LABS: Syphilis IgG/IgM Antibody Non-Reactive (Nonreactive)
--- NOTE | 2024-11-23 08:01 | WPDOBADMIT ---
Obstetrics - Admit Note Admission Note: record reviewed. No pertinent additions to the history and/or any subsequent changes in the physical findings that are not consistent with the expected course of the were found. Additions to the history and/or subsequent changes in the physical findings follow. Admit for IOL. Anticipate vaginal delivery.
--- NOTE | 2024-11-23 11:27 | PM.OBPNLAB ---
Pain Control Date/time seen: 11/23/24 11:27 Comments: sve //-2 anterior, AROM large amount of clear, odorless fluid, anticipate vaginal delivery
--- NOTE | 2024-11-23 15:03 | PM.OBPRVD ---
OB - Vaginal Delivery Note Procedure Delivery date: 11/23/24 Induction method: AROM and Per Pitocin Protocol Delivery monitor: External FHT and External Uterine Route of delivery: Laceration Description: None Specimen: No Quantitative Blood Loss (ml): 25 Anesthesia type: Epidural Disposition: Floor Complications: No immediate complications Baby Date of : 11/23/24 Time of : 14:53 Gestational Age by Date: 39 Infant gender: Male presentation: vertex position: Left Occiput Anterior Placenta delivery description: Spontaneous and Expressed Cord Vessel Description: 3 Vessels and Delayed Cord Clamping score one minute: 9 score five minutes: 9
[2024-11-23] MEDS: OXYTOCIN 30 UNITS/NS 500 ML 30 UNITS/500 ML BAG 125 UNITS IV CONT (15:27)
[2024-11-23] MEDS: IBUPROFEN 600 MG TABLET PO (19:04)
[2024-11-23] MEDS: ACETAMINOPHEN 325 MG TABLET 650 MG PO (19:04)
[2024-11-23] MEDS: SERTRALINE HCL 25 MG TABLET PO (22:42)
[2024-11-24] MEDS: ACETAMINOPHEN 325 MG TABLET 650 MG PO ×2 (03:00→08:50)
[2024-11-24] MEDS: IBUPROFEN 600 MG TABLET PO ×2 (03:00→08:50)
[2024-11-24 04:30] LABS: Hematocrit 34.6 % (37.0-47.0); Hemoglobin 11.2 g/dL (12.0-15.0)
[2024-11-24 07:31] VITALS: BP 109/56; PULSE 69; RESP 17; TEMP 36.2; O2SAT 97
[2024-11-24] MEDS: DOCUSATE SODIUM 100 MG CAPSULE PO (08:49)
[2024-11-24] MEDS: MULTIVIT/MIN/PREN/FOL AC/IRON TABLET 1 TAB PO (08:49)
--- NOTE | 2024-11-24 09:00 | P.PNOB_ITS ---
OB - PN: Subj Subjective Date/time seen: 11/24/24 09:00 Patient comments: no complaints, pain well controlled, incisional pain, tolerating diet and flatus present OB - PN: Obj Data Labs 11/24/24 04:09 Labs: Laboratory Results - last 24 hr 11/24/24 04:09 Hgb 11.2 L Hct 34.6 L OB - PN A/P Plan day: 1 Plan: routine care Comments: No problems, routine care Time Spent With Patient Time: Total time spent is greater than 50% in coordination of care (as documented) at patient's floor/unit and/or counseling patient: Exam 2 Const: General: comfortable, no acute distress and alert Resp: Effort & Inspection: normal respiratory effort Auscultation: no crackles, no rales and no rhonchi Cardio: Rate: regular rate Heart sounds: no click, no murmurs and no rubs GI: Inspection: non-distended GI Palp: No Tenderness to palpation present (GI) Auscultation: normal bowel sounds Other: Incision - CDI Extrem: General: normal to inspection, no pedal edema and no calf tenderness
--- NOTE | 2024-11-24 15:15 | PC.NURSE ---
Mother verbalizes she is able to independently latch with appropriate positioning and alignment. She denies any nipple discomfort and is responsively . Infant is currently meeting outcomes for weight, output, jaundice, blood sugar and feeding frequencies of 8-12 times in 24 hours. Patient breastfed her other children and is supplementing with formula as desired. Mother declines any additional assistance or education at this time. Mother is encouraged to call for assistance if her doesn?t latch, pain with latching, questions or concerns. She has the Services phone number for assistance if needed. Mother voiced understanding of information shared along with the mom/baby guide for an additional resource. Reported to the Primary RN.
[2024-11-24] MEDS: INFLUENZA VACCINE 45 MCG/0.5 ML SYRINGE IM (15:26)
[2024-11-26 09:18] VITALS: BP 120/66; PULSE 71; RESP 18; TEMP 36.7; O2SAT 100
--- NOTE | 2024-12-19 22:01 | PM.OBDSVD ---
DS: Admitting Diagnosis Discharge Date 11/24/24 Admitting Diagnosis term DS: Discharge Diagnosis Discharge Diagnosis (1) Post term , delivered: Code(s): O48.0 - Post-term Status: Acute OB - DS: Summary OB Procedures : None OB Procedures Intrapartum: Spontaneous Vag Delivery OB Procedures: : None Peripartum Data Laceration Description: None Time Spent with Patient Time attestation: Total time spent providing and/or coordinating discharge services: Discharge Plan Discharge Discharging Clinician: Kem Smalls Patient Disposition: Home Activity: other - see discharge instructions Diet: other - see discharge instructions Discharge Instructions: Education: Mom and Baby Guide Given to: Mother Follow-Up: Call your delivering provider's office for an appointment to be seen in: Call for appointment Mom and baby should come to the [facility] for the follow-up appointment. Appointment Date/Time: November 26, 2024 at 9:00 am What to expect at your follow-up visit: Blood Pressure Check Physical Assessment Call [phone] if you are unable to keep your appointment time. BREAST CARE: * Wear a snug supportive bra. * For engorgement discomfort: Breast Feeding: * Apply warm moist washcloths * Express milk as needed to relieve engorgement * Wear loose clothing Bottle Feeding: * May apply ice packs * For sore nipples: * Identify correct latch-on * Apply warm moist washcloths before and after nursing * Air dry nipples after nursing * May apply Lansinoh cream to nipples PERINEAL CARE: * Until bleeding stops, use your shaila bottle after urinating * Change your pad frequently throughout the day * You may take sitz baths several times a day (fill your bathtub with warm water and soak for 20 minutes.) Do NOT bathe in the water * No tub baths until seen by your physician - You may shower ACTIVITY: * Rest as much as possible. * Do not exercise or lift anything heavier than your baby (such as laundry or other children.) * Avoid stairs or driving as much as possible. * Do not put anything into the vagina. No douching, tampons, or sexual activity until seen by physician. NOTIFY PHYSICIAN IF YOU HAVE ANY QUESTIONS OR IF ANY OF THE FOLLOWING SYMPTOMS OCCUR: * If your vaginal bleeding becomes foul smelling. * If your vaginal bleeding becomes more heavy than a period or if your bleeding changes from pink to bright red. However, you may pass an occasional walnut-sized clot once or twice for the first week . * If you experience a sharp, shooting pain in your calves. * If you discover a hard, reddened area on your breast or if you experience flu-like symptoms. DIET: * Eat regular, well-balanced meals. * Drink plenty of fluids daily. If , drink to thirst. Patient Language: Portuguese Stand Alone Forms: General Discharge Information Follow-up/Referrals: Niyah Smith CNM [Certified Nurse [employer], [employer]] Discharge Medications: Continued PNV no.[id number] fumarate-FA [] 28 mg iron- 800 mcg tablet 1 tablet PO DAILY No Action sertraline 25 mg tablet 25 mg PO magnesium glycinate 100 mg magnesium capsule PO sertraline 50 mg tablet 50 mg PO DAILY Qty: 90 2RF Date of admission: 11/23/24 05:06 Primary Care Provider: Brittany Contreras Admitting Provider: Kem Smalls Attending physician on admission: Kem Smalls Condition: Stable
== END 2024-11-24 16:04 | disposition home or self-care (01) | DRG 807 ==
LOC: ANHLDR 05:24 → ANHOB2 18:14
PROVIDERS: Advanced Practice Midwife; Admitting Provider Obstetrics & Gynecology; PCP Family Medicine; Visit Provider Obstetrics & Gynecology
DX: O99.824 Streptococcus B carrier state complicating childbirth (principal); Z37.0 Single live birth; Z3A.39 39 weeks gestation of pregnancy; Z23 Encounter for immunization
CPT/HCPCS: 36415; 85014; 85018; 85025; 86593; 86850; 86900; 86901; 90471; 90656; J0690; A9270; G0008; J2590; J7120